=== PATIENT | female | born 1980 | race Caucasian/White ===

== ENCOUNTER 2017-02-12 09:59 | Inpatient (IN) | payer OTHER ==
[~2017-02-12] VITALS: Ht 175.3 cm; Wt 92.9 kg
[2017-02-12] VITALS (7 sets, daily range): BP systolic 89–121; BP diastolic 58–95
--- NOTE | ~2017-02-12 | HC ---
[facility] [place] [address] CONSULTATION Name: DEBRA DHILLON Room #: 303-P ADM IN M.R.#: [id number] Admission: 02/12/17 Attend Phys: Pancho Iyer DO Discharge: Date of : 76 Report #: [id number] THIS REPORT FOR: //name// CC: [facility] physician/PCP Suresh Santana MD DATE OF SERVICE: 02/13/[address] Santana. CHIEF COMPLAINT: This is a very pleasant 36-year-old female alcoholic, who is well known to me from multiple previous admissions who was admitted once again with alcoholic hepatitis. She is recovering in the ICU with appropriate care for her situation. She is awake and alert and oriented at this time. She has had one bloody stool since admission. PAST MEDICAL HISTORY: Significant for ischemic colitis. This was biopsied proven with colon biopsies and the CTA was not indicative of any focal ischemia lesion. She has a history of microcytic anemia, anxiety, depression, schizo-affective disorder with hallucinations in the past, seizures, chronic alcohol use, chronic pancreatitis, thrombocytopenia. PAST SURGICAL HISTORY: Significant for an appendectomy, cholecystectomy, sections, tonsillectomy, removal of the neck tumor that was benign apparently. She had an ACL repair and a rotator cuff surgery as well. ALLERGIES: TRAMADOL. MEDICATIONS: Prior to admission included amoxicillin, dicyclomine, Keppra, Flagyl, Seroquel, sertraline and prazosin. SOCIAL HISTORY: She does drink alcohol. She does smoke. She drinks alcohol very extensively and has had numerous admissions for alcoholic hepatitis. She may have cirrhosis. CURRENT MEDICATIONS: Include amoxicillin, benzoyl, Keppra, Flagyl, Seroquel, sertraline and prazosin as mentioned. FAMILY HISTORY: Negative for colon polyps, colon cancers. The patient herself has a history of Crohn's disease, though we have not seen any active Crohn's disease on scope that was done here at [facility]. She does have positive anti-Saccharomyces IgA and IgG antibodies which would be indicative of possible Crohn's disease in about 70%. of the patients who carry that. REVIEW OF SYSTEMS: She denies any dysphagia, odynophagia, gastroesophageal [facility] [address] [place] [address] CONSULTATION Name: DEBRA DHILLON Room #: 303-P [facility] IN M.R.#: [id number] Admission: 02/12/17 Attend Phys: Pancho Iyer DO Discharge: Date of : 76 Report #: [id number] reflux, hiatal hernia, peptic ulcer disease, nausea, vomiting, change in weight, change in appetite. Now, she has alcoholic hepatitis. She has no appetite. She denies any hematemesis or melena, but she has had some hematochezia this morning, one small stool. She has a history of ischemic colitis, it is biopsy proven. She has left lower quadrant pain and left upper quadrant pain that are consistent with chronic pancreatitis and her previous ischemic pattern. Currently not nauseated and not vomiting. PHYSICAL EXAMINATION: GENERAL: Reveals a well-developed, well-nourished 36-year-old white female in no apparent distress at the time of my examination, who is in and out of consciousness, who is awake, alert, oriented times 4 and cooperative when she is awake, but she drifts back to sleep quickly. HEENT: She is normocephalic and atraumatic and anicteric. HEART: Rate and rhythm are regular with a normal S1 and S2. LUNGS: Clear bilaterally. ABDOMEN: Soft, bowel sounds are present in all 4 quadrants. There is no palpable organomegaly or mass. There is tenderness in the left upper quadrant and epigastrium and tenderness in the left lower quadrant, but no rebound or guarding. EXTREMITIES: Warm and dry. NEUROLOGIC: She appears grossly intact without lateralizing signs, but I did not test her extensively neurologically. LABORATORY DATA: Her BMP is normal except for mildly elevated glucose. AST was 695 yesterday, down to 544 today. ALT was 160 yesterday and down to 137 today. Alkaline phosphatase went from 230 to a 206. Total bilirubin went from 3.2 to 3.0. It appears to be primarily conjugated bilirubin. Albumin is 2.4, ammonia is 71, which was up from 51 yesterday. Lactate was elevated initially at 4.2 units and headed down to 3.5 now. Alcohol level was 451 on admission. Iron saturation is 36%. Her INR is 1.3. D-dimer is high at 2.77. White count was normal, hemoglobin is normal, MCV is high at 104.8, it has been in the past just secondary to her alcohol use. Platelet count is 21,000 today. Ferritin 656, but is in acute phase reactant. Folate is 1.8, B12 is 1796. Thyroid studies are all within normal limits. She has an elevated Saccharomyces IgG and IgA as mentioned. Urinalysis shows 2+ protein, 3+ bilirubin, 1+ ketones, 3+ blood, nitrites are positive, probably because of the bilirubin is false positive. RADIOLOGY: CT scan of the head shows no mass effect, midline shift or extraaxial fluid collection. There is no acute intracranial hemorrhage or CT evidence of acute infarction. The bilateral cisterns are patent. The orbits and mastoid air cells are normal. Paranasal sinuses are normal. Skull is normal. No acute intracranial process. CT abdomen and pelvis was also done at the time of admission for left lower quadrant pain evaluation. Fatty liver is noted. Spleen is normal in size. Gallbladder absent without significant bile duct dilatation, some calcifications noted in the pancreas consistent with [facility] [address] [place] [address] CONSULTATION Name: DEBRA DHILLON Room #: 303-P [facility] IN .R.#: [id number] Admission: 02/12/17 Attend Phys: Pancho Iyer DO Discharge: Date of : 76 Report #: [id number] chronic pancreatitis. There were few kidney stones in the upper pole of the left kidney, about 2 mm in size, nonobstructing. There were multiple dilated retroperitoneal veins to the left of the midline which extends to the portal vein and this probably is some element of portal hypertension. Dilated veins were also seen along the anterior marginal of the liver. Retroverted uterus is seen. There are several follicular cysts in the left ovary. There is a new calcification in the left adnexal area. IMPRESSION: 1. Alcoholic hepatitis with a Maddrey Discriminant Function of 8. 2. Chronic pancreatitis. 3. Hematochezia, small stool this morning. 4. Thrombocytopenia, severe, platelet count 32,000. 5. History of ischemic colitis. 6. Multiple dilated retroperitoneal veins extending to the portal vein, rule out esophageal varices. 7. Schizo-affective disorder with hallucinations by history. 8. History of seizures. 9. History of macrocytic anemia, normal thyroid, B12, and folate levels. 10. Positive Saccharomyces IgA and IgG anybody. These occur in about 70% Crohn's patients and she gives a history of Crohn's disease, but we have not ever seen any Crohn's manifestation. 11. Calcifications in the left adnexa of uncertain etiology. I think this needs to be worked up with a pelvic ultrasound further. 12. Urinary tract infection. She has greater than 100,000 gram-negative rods in her urine, sensitivity and identification is pending. RECOMMENDATIONS: My recommendations are to: 1. Continue the supportive care, recheck her liver enzymes, proton and CBC in the morning. We need an esophagogastroduodenoscopy at some point on her to evaluate for possible esophageal varices in light of the findings on her CT scan. She is advised very strongly to stop all alcohol intake completely and forever. She is headed for early demise at this rate. 2. Treat urinary tract infection when information becomes available. Currently, she is on ceftriaxone, which may be adequate. 3. Pelvic ultrasound. 4. Continue levetiracetam. 5. Alcohol withdrawal procedures. 6. Clear liquid diet as tolerated. [address] [address] CONSULTATION Name: DEBRA DHILLON Room #: 303-P [facility] IN M.R.#: [id number] Admission: 02/12/17 Attend Phys: Pancho Iyer DO Discharge: Date of : 76 Report #: [id number] Thank you very much once again for allowing me to participate in her care. <ELECTRONICALLY SIGNED> By: Kerrie Hoyos DO 02/19/17 1153 1238 0127 Kerrie Hoyos DO /nt
--- NOTE | ~2017-02-12 | H ---
[facility] [place] [address] HISTORY AND PHYSICAL Name: DEBRA DHILLON Room #: 246-P ADM IN M.R.#: [id number] Admission: 02/12/17 Attend Phys: Suresh Santana MD Discharge: Date of : 76 Report #: [id number] THIS REPORT FOR: //name// CC: [facility] physician/PCP Suresh Santana DATE OF SERVICE: 02/12/2017 CHIEF COMPLAINT: Abdominal pain. HISTORY OF PRESENT ILLNESS: The patient is a 36-year-old female with history of alcoholism, chronic abdominal pain, alcohol related liver disease, history of ischemic colitis in the past, presented to the emergency room, secondary to abdominal pain. The patient states she has had abdominal pain since October 2016. The patient also states, she has an episode of pancreatitis and ischemic colitis in the past. There has been also some nausea and vomiting. The patient is very confused. She is oriented to self and person. She follows simple commands. According to the ER note, the patient was brought in by boyfriend, secondary to abdominal pain. PAST MEDICAL HISTORY: Significant for acute pancreatitis, history of ischemic colitis in October of 2016. She had CTA done at that time, which was negative. She did have a colonoscopy at that time which shows consistent with ischemic colitis. She has had elevated LFTs secondary to alcoholism, history of microcytic anemia, anxiety, depression, chronic pain syndrome. She had echocardiogram done in August 2016, which showed an EF of 60-65%. No pericardial effusion. She had thrombocytopenia in the past. History of seizure disorder, also he has had withdrawal from alcohol. Depression and anxiety. Schizoaffective disorder. PAST SURGICAL HISTORY: Significant for , status post neck tumor removal, post-appendectomy, status post tonsillectomy, status post cholecystectomy, ACL surgery, and rotator cuff surgery. SOCIAL HISTORY: The patient states she still smokes. She still drinks, unable to quantify because of the confusion. The patient denies any drug intake. The patient states she lives with a friend. FAMILY HISTORY: Negative for epilepsy or hypercoagulable state. ALLERGIES: She is allergic to TRAMADOL. HOME MEDICATIONS: Unknown. According to the previous note, she is on Seroquel, Zoloft, and Keppra at one point. She is confused at present, unable to obtain the exact home medication list. [address] [address] HISTORY AND PHYSICAL Name: DEBRA DHILLON Room #: 246-P [facility] IN M.R.#: [id number] Admission: 02/12/17 Attend Phys: Suresh Santana MD Discharge: Date of : 76 Report #: [id number] REVIEW OF SYSTEMS: Unable to obtain because of confusion. PHYSICAL EXAMINATION: VITAL SIGNS: Blood pressure 115/69, heart rate of 110 per minute, respiratory rate is 20 per minute, afebrile. GENERAL: The patient is awake. She follows simple commands. She is oriented to person. EYES: Pupils are equal and reacting to light. THROAT: She has a very dry oral mucosa. NECK: Supple. No JVD, no bruit, no lymphadenopathy. CARDIOVASCULAR: S1 and S2. No S3. CHEST: Bilateral air entry present. Clear on auscultation. ABDOMEN: Soft. Bowel sounds present. No mass. No organomegaly. There is mild diffuse tenderness. No rebound tenderness. No guarding. PERIPHERY: No pedal edema. No calf tenderness. Dorsalis pedis 1+. NEUROLOGIC: No gross motor or sensory deficit. Able to move all 4 extremities. No asterixis noted. No tremors noted. LABORATORY DATA: Reviewed. CT of the head done today showed no evidence of any acute intracranial process. CT of the abdomen and pelvis again showed evidence of chronic pancreatitis, and few nonobstructing stones within the upper pole of the left kidney, cyst seen in the left ovary about 2.3 cm, severe fatty infiltration of the liver with retroperitoneal varices, suggestive of portal hypertension. Calcification within the pancreas consistent with chronic pancreatitis. White count of 6.6 with normal hemoglobin and hematocrit. Platelet is 32. INR of 1.3, potassium is 3.2, and anion gap is 18. Lactic acid is 4.2. Magnesium is 1.9, bilirubin is 3.2, AST and ALT are 695 and 160, albumin is 2.9. Urine toxicology was negative. UA revealed 6-15 WBC. Ammonia is elevated at 51. Alcohol level was 451. ASSESSMENT AND PLAN: 1. Acute alcoholic hepatitis. GI will be consulted. The patient has been strongly advised to stop drinking alcohol. We will watch closely for alcohol withdrawal symptoms. I ordered benzodiazepine p.r.n. for alcohol withdrawal. The patient will be continued on Keppra. 2. Elevated ammonia/hepatic encephalopathy. The patient will be continued on p.o. lactulose. 3. Urinary tract infection. We will continue with IV ceftriaxone. We will follow up urine culture and adjust antibiotic as needed. 4. Profound thrombocytopenia, most likely related to liver disease. We will consult Hematology. I also ordered a peripheral smear study. We will also do a DIC workup including D-dimer, fibrinogen, and PTT. 5. Hypokalemia. Potassium will be replaced. [facility] [address] [place] [address] HISTORY AND PHYSICAL Name: DEBRA DHILLON Room #: 246-P [facility] IN .R.#: [id number] Admission: 02/12/17 Attend Phys: Suresh Santana MD Discharge: Date of : 76 Report #: [id number] 6. Alcoholism with alcohol level of 451. 7. Chronic pain/anxiety and depression/schizoaffective disorder. 8. History of ischemic colitis in October of 2016. 9. Deep venous thrombosis prophylaxis. The patient will be placed on SCD on legs for DVT prophylaxis. Treatment plan has been explained to the patient in detail. <ELECTRONICALLY SIGNED> By: Suresh Santana MD 02/13/17 1256 1502 1810 Suresh Santana MD /nt
--- NOTE | ~2017-02-12 | HC ---
[facility] [place] [address] CONSULTATION Name: DEBRA DHILLON Room #: 246-P ADM IN M.R.#: [id number] Admission: 02/12/17 Attend Phys: Suresh Santana MD Discharge: Date of : 76 Report #: [id number] THIS REPORT FOR: //name// CC: Nikita Vieira MD [facility] physician/PCP Abi Santana MD REASON FOR CONSULTATION: Thrombocytopenia. HISTORY OF PRESENT ILLNESS: The patient is a 36-year-old female with a history of known alcoholism, who was admitted with abdominal pain and alcohol level over 450. Her platelets on this admission were 32,000; today, they are 21,000; that was yesterday, 32,000. Most recently, in October, they were 278,000, at the time of discharge. In the past, she had been as low as 46,000, on 09/22/2015. The patient is still in withdrawal mode and still a questionable historian. It sounds like she had some rectal bleeding, but it sounds it had been in the past when she had ischemic colitis back in October. There is no report either per her or per the chart that she has any active bleeding, either in the stool or in her urine. The blood is reported was 3+ and the RBCs as 3-10. The patient, at this time, denies fevers or chills. She does state that she had been having nausea, vomiting and abdominal pain. Note that she appears to have pancreatitis with elevated pancreatic enzymes and also alcoholic hepatitis, with an alcohol level over 450 on admission and transaminases are greatly elevated, higher than usual and a total bilirubin of 3.2. Note that her synthetic function is mostly okay. Her INR is 1.3; previously 1.1. APTT is good. Fibrinogen is also fairly adequate. The rest of her labs are normal. The electrolytes are unremarkable, though potassium was low on admission at 3.2, it is now 3.4; BUN 7 and creatinine 0.7. AST 695 yesterday. Total bilirubin 3.2 yesterday, direct bili 0.6. Alkaline phosphatase 230 and ALT 160. GGTP not drawn this admission. Current albumin yesterday was 2.9. Ammonia level was 71 today; 51 yesterday. Alcohol level was 451 this admit. There are several other admits over 400 going back 5 years. Iron levels were drawn back in July with an iron of 64 back then and percent set at 23. Lab will be checked again. As mentioned, protime this admit 13.4 with an INR of 1.3, APTT 28.2 and fibrinogen 221. Drug screen was negative for other drugs tested. WBC was 6.6; hemoglobin 15, now 13. Normal baseline when she left back in October, it had been 11.6. MCV elevated at 103, which is chronically elevated for the last several years. RDW 16.4. Differential fairly normal with a slight left shift, with no acute forms noted on this admit. Did have metamyelocytes and myelocytes back in 2011. UCG is negative. TSH this admit 0.872, folate 11.8. Vitamin B12 at 1796. U/A, as I mentioned, had 3-10/few red cells. Imaging this admit includes CT head with no acute intracerebral process. [facility] [address] [place] [address] CONSULTATION Name: DEBRA DHILLON Room #: 246-P ADM IN M.R.#: [id number] Admission: 02/12/17 Attend Phys: Suresh Santana MD Discharge: Date of : 76 Report #: [id number] abdomen and pelvis shows lung bases have some atelectasis or scarring, liver has severe fatty infiltration without abnormalities. Spleen, as mentioned, is normal in size. Gallbladder surgically absent. Pancreas, some calcification, suggested of chronic pancreatitis without acute changes. Adrenal is normal. Kidneys without hydronephrosis. Retroperitoneum, multiple dilated retroperitoneal veins to the left of midline that may represent portal hypertension. Dilated veins also seen in the inferior margin of the liver. Bowel, no focal bile or inflammatory changes identified. Peritoneum, no free air or ascites. Bladder, small amount of gas. Bones, no significant bone abnormalities. Does have a left ovarian probably follicular cyst. Has known obstructing stones that pulled the left upper kidney. PHYSICAL EXAMINATION: GENERAL: The patient appears her stated age. Breath is slightly sweet, like it is expected from alcohol overuse and perhaps some ketones. VITAL SIGNS: Height is 5 feet 9, 175.3 cm. Weight is 160 pounds 18 ounces, which is about 72 kilograms. Blood pressure is 99/61, O2 sat 92, pulse 109 and temperature 98.8. NEUROLOGIC: Face is symmetrical. The patient is slightly tremulous and distracted in her thinking and speech pattern, though is able to answer questions. HEENT: Oropharynx is clear, without injection, ecchymosis or masses. LUNGS: Have symmetric respirations that are unlabored. LYMPHATICS: No enlarged lymph nodes in the supraclavicular, cervical, axillary or inguinal region. ABDOMEN: Obese, slightly tender. No definite masses. EXTREMITIES: Without clubbing or cyanosis. No unusual ecchymosis. No bleeding from the IV sites. PAST MEDICAL HISTORY: Past history is notable in the chart for a history of alcohol abuse, also acute pancreatitis, history of ischemic colitis in October of 2016, history of anxiety and depression, schizoaffective disorder, history of thrombocytopenia to 40-50 range in the past, history of seizure disorder, also alcohol withdrawal, also , some type of neck tumor removal, appendectomy, tonsillectomy, cholecystectomy and rotator cuff surgery in the past. SOCIAL HISTORY: Still smokes, still drinks. She is on disability due to seizures. FAMILY HISTORY: Reports no one else with bleeding difficulties. It sounds like her father was alcoholic. I believe, she has children. ALLERGIES: Reports at this time to TRAMADOL. MEDICATIONS: Had been on Zoloft and Keppra in the past. Current medications at [address] [address] CONSULTATION Name: DEBRA DHILLON Room #: 246-P [facility] IN .R.#: [id number] Admission: 02/12/17 Attend Phys: Suresh Santana MD Discharge: Date of : 76 Report #: [id number] this time in the hospital include vitamins, lactulose 20 grams b.i.d., thiamine 100 mg daily, ceftriaxone 1 gram daily, famotidine 20 mg b.i.d., levetiracetam 500 mg b.i.d., lorazepam p.r.n., diazepam p.r.n., other electrolyte protocol , also Haldol p.r.n. and flumazenil p.r.n. ASSESSMENT AND PLAN: 1. Thrombocytopenia, most likely due to alcohol effect of bone marrow. No active bleeding. I expect this to recover on its own. Note that B12, folate and thyroid studies have been checked. We will check iron again. We will also check platelet antibody. Also spleen is normal. So, I do not expect splenomegaly as a cause. At this time, I would not transfuse as she does not have any active bleeding, but if she does bleed, I would transfuse. 2. Alcoholism and withdrawal. We will defer to others. 3. Abdominal pain. It may be related to pancreatitis. We will defer to others. 4. Seizure disorder. Continue with levetiracetam. 5. Schizoaffective mood disorder. May need to be back on anti-depressant meds at some point. 6. Regarding prognosis, I did explain to the patient that continued alcohol will cause continuous and worsening liver and bone marrow difficulties that could be lead to an earlier and encouraged her to stop. <ELECTRONICALLY SIGNED> By: Eder Mayes MD 02/13/17 1926 [id number] 1218 Eder Mayes MD /nt
--- NOTE | ~2017-02-12 | S ---
[facility] [place] [address] SURGICAL PATH RPT PROCEDURE Name: DEBRA DHILLON Room #: 246-P ADM IN M.R.#: [id number] Admission: 02/12/17 Date of : 76 Discharge: Report #: [id number] Path Case #: [id number] PATHOLOGY REPORT COLLECTION DATE: 02/14/2017 RECEIVED DATE: 02/14/2017 SUBMITTING PHYS: Dr. Suresh Santana OTHER PHYS: SPECIMEN(S) RECEIVED: A.Peripheral smear * * * * * * * * * * * * FINAL DIAGNOSIS: Peripheral blood with severe thrombocytopenia, relative neutrophilia, lymphocytopenia, and macrocytosis. (please see comment) COMMENT: The peripheral blood shows relative neutrophilia with toxic changes including occasional cytoplasmic vacuoles. There is also thrombocytopenia noted. The findings suggest a reactive process probably secondary to infectious/inflammatory etiology. There is macrocytosis with occasional target cells, findings possibly related to patient's clinical history of alcoholism and liver disease. The thrombocytopenia may also be secondary to ineffective megakaryocytopoiesis due to alcohol suppression. Other possible causes of thrombocytopenia should be considered and may include failure of marrow production such as seen in marrow infiltration with tumor, infection, or fibrosis, marrow aplasia, and ineffective megakaryocytopoiesis such as seen in megaloblastic anemia and myelodysplasia. Increased platelet destruction may cause thrombocytopenia such as seen in immune thrombocytopenia (autoantibody-mediated: systemic lupus erythematosus, lymphomas, drugs, infections, idiopathic) and non-immune thrombocytopenia (DIC, TTP, and mechanical). Splenic sequestration (hypersplenism) may also cause thrombocytopenia. There are no aggregates of platelets to suggest spurious EDTA-pseudothrombocytopenia. Please correlate clinically. (ADORE:; d/t: 02/14/17) PATHOLOGIST: Ijeoma Christiansen M.D. REPORT ELECTRONICALLY SIGNED BY: Ijeoma Christiansen M.D. DATE/TIME: 02/14/2017 23:25 * * * * * * * * * * * * MICROSCOPIC DESCRIPTION: CBC Data (02/12/17): WBC 6.6, RBC 4.21, hemoglobin 15.0, hematocrit [address] [address] SURGICAL PATH RPT PROCEDURE Name: DEBRA DHILLON Room #: 246-P ADM IN ..#: [id number] Admission: 02/12/17 Date of : 76 Discharge: Report #: [id number] Path Case #: [id number] 44.2, MCV 104.8, RDW 16.6%, and platelet count 32,000. White blood cell count differential: 89% segs, 6% lymphs, 3% monos, and 1% basos. Peripheral Smear: Red blood cells are normochromic with mild anisopoikilocytosis including occasional microcytic and macrocytic forms and target cells. There are no schistocytes or morphologic evidence of a hemolytic process identified. Platelets are severely decreased with normal morphology. Aggregates of platelets are not seen. White blood cells are normal in number with predominance of mature segmented neutrophils. There are no circulating blasts or myeloid left shift identified. The neutrophils show occasional cytoplasmic vacuoles. The lymphocytes are relatively decreased and are mostly small and mature. CLINICAL HISTORY: The patient is a 36 year-old female with a past medical history of alcoholism, chronic abdominal pain, alcohol related liver disease, and history of ischemic colitis in the past. She recently was seen due to abdominal pain. A peripheral smear is submitted for review. INITIAL CPT CODE(S): A; [place] Professional services performed by [facility] at [facility], [address] [place] [address]. Technical services performed by [facility] at [address] [place] [address], [address], [place] [address]. [facility] [address] [place] [address] PHONE: [phone] DIRECTOR: Gilles Olivares M.D. * * * END OF REPORT * * *
[~2017-02-12 09:59] MED LIST: AMOXICILLIN500 M1 PO; ATIVAN1 MG PO; BENTYL 20 MG TA20 M1 PO; BUSPIRONE HCL10 MG PO; CLONAZEPAM 0.50.5 M1 PO; CLONAZEPAM 1 MG1 M1 PO; DEPAKOTE ER500 MG PO; DILAUDID 2 MG TA2 MG PO; FLAGYL500 MG PO; GNP PRENATAL V PO; IBUPROFEN 800800 M1 PO; IBUPROFEN 800800 MG PO; KEPPRA 500 MG500 M1 PO; LIBRIUM10 MG PO; LIDODERM 5%1 PATC1 TRANSDERM; MIRTAZAPINE15 M1 PO; NOHOMEMEDICATIONS; NORCO 5-325 TA1 EACH PO; OXYCODONE HCL5 M1 PO; PERCOCET PO; Prazosin PO; SEROQUEL 50 MG50 MG PO; SEROQUEL XR400 M1 PO; SERTRALINE HCL100 MG PO; SERTRALINE HCL50 MG PO; VITAMIN B-1100 M1 PO; ZOFRAN ODT4 MG PO
[2017-02-12 11:01] LABS: MCH 35.6 pg (26.0-34.0); WBC 6.6 thou/uL (4.0-11.0)
[2017-02-12 11:03] LABS: HEMATOCRIT 44.2 % (37.0-47.0); MCV 104.8 fL (80.0-100.0); RBC 4.21 mil/uL (4.20-5.00); RDW 16.6 % (10.5-14.5)
[2017-02-12 11:13] LABS: MANUAL DIFF YES
[2017-02-12 11:21] LABS: ALBUMIN 2.9 g/dL (3.4-5.0); ALKALINE PHOSPHATASE 230 U/L (46-116); ANION GAP 18 mmol/L (7-16); CHLORIDE 96 mmol/L (98-107); CO2 24 mmol/L (21-32); CREATININE 1.1 mg/dL (0.6-1.3); GLUCOSE 114 mg/dL (70-99); MAGNESIUM 1.9 mg/dL (1.8-2.4); POTASSIUM 3.2 mmol/L (3.5-5.1); SGOT 695 U/L (15-37); SGPT 160 U/L (30-65); SODIUM 138 mmol/L (136-145); TOTAL BILIRUBIN 3.2 mg/dL (<0.1-1.0); TOTAL PROTEIN 7.6 g/dL (6.4-8.2); TROPONIN-I < 0.04 ng/mL (<0.04-0.07)
[2017-02-12 11:52] LABS: URINE BILIRUBIN 3+ (Negative); URINE BLOOD 3+ (Negative); URINE COLOR YELLOW; URINE GLUCOSE-RANDOM* NEGATIVE (Negative); URINE KETONES 1+ (Negative); URINE LEUKOCYTES-REFLEX TRACE (Negative); URINE PROTEIN (DIPSTICK) 2+ (Negative); URINE SPECIFIC GRAVITY 1.025 (1.003-1.035)
[2017-02-12 11:54] LABS: ICTOTEST (BILI CONFIRMATORY) Positive (Negative)
[2017-02-12 12:01] LABS: INR 1.3; PROTIME 13.4 Seconds (9.3-11.4)
[2017-02-12 12:03] LABS: ABSOLUTE NEUTROPHILS 5.9 thou/uL (1.4-8.2); ANISOCYTOSIS 1+; MACROCYTES 1+; PLATELET ESTIMATE MARKEDLY DECREASED; TOTAL CELL COUNT 100
[2017-02-12 12:05] LABS: PLATELET COUNT 32 thou/uL (150-400)
[2017-02-12 12:11] LABS: AMP/METHAMP Negative (Negative); BARBITURATES Negative (Negative); BENZODIAZEPINES Negative (Negative); COCAINE Negative (Negative); METHADONE Negative (Negative); OPIATES Negative (Negative); PCP Negative (Negative); THC Negative (Negative)
[2017-02-12 12:17] LABS: SQUAMOUS 4-10 Moderate /LPF (0-3)
[2017-02-12 12:18] LABS: CRYSTALS None Seen /LPF (None Seen); HYALINE CASTS 0-3 Few /LPF (None Seen)
[2017-02-12 12:19] LABS: URINE RBC 3-10 Few /HPF (0-2); URINE WBC-REFLEX 6-15 Few /HPF (0-5)
[2017-02-12 12:23] LABS: BUN 14 mg/dL (7-18)
[2017-02-12 16:37] LABS: FOLIC ACID 11.8 ng/mL (8.6-58.9)
[2017-02-12 16:38] LABS: APTT 28.2 Seconds (24.5-32.8); FIBRINOGEN 221.1 mg/dL (210-360)
[2017-02-13] VITALS (25 sets, daily range): BP systolic 93–116; BP diastolic 47–80
[2017-02-13 04:59] LABS: WBC 6.6 thou/uL (4.0-11.0)
[2017-02-13 05:00] LABS: HEMATOCRIT 37.9 % (37.0-47.0); MCH 35.4 pg (26.0-34.0); MCHC 34.3 g/dL (28.0-37.0); MCV 103.1 fL (80.0-100.0); RBC 3.68 mil/uL (4.20-5.00); RDW 16.4 % (10.5-14.5)
[2017-02-13 05:02] LABS: CALCIUM 7.6 mg/dL (8.5-10.1); CREATININE 0.7 mg/dL (0.6-1.3); MAGNESIUM 1.6 mg/dL (1.8-2.4); PHOSPHORUS 1.9 mg/dL (2.5-4.9); POTASSIUM 3.4 mmol/L (3.5-5.1)
[2017-02-13 09:32] LABS: INR 1.3
[2017-02-13 09:34] LABS: % SATURATION 36 % (20-39); IRON 58 ug/dL (50-170); TIBC 159 ug/dL (250-450); UIBC 101 ug/dL
[2017-02-13 09:40] LABS: ALBUMIN 2.4 g/dL (3.4-5.0); DIRECT BILIRUBIN 2.6 mg/dL (<0.1-0.3); TOTAL PROTEIN 6.5 g/dL (6.4-8.2)
[2017-02-13 10:11] LABS: FREE T4 1.23 ng/dL (0.82-1.77)
[2017-02-14] VITALS (48 sets, daily range): BP systolic 91–115; BP diastolic 55–80
[2017-02-14 05:32] LABS: ABSOLUTE NEUTROPHILS 3.2 thou/uL (1.4-8.2); EOSINOPHILS 0.6 % (0.0-3.0)
[2017-02-14 05:34] LABS: BASOPHILS 0.3 % (0.0-2.0); HEMATOCRIT 34.4 % (37.0-47.0); LYMPHOCYTES 13.8 % (24.0-44.0); MCH 35.9 pg (26.0-34.0); MCHC 34.8 g/dL (28.0-37.0); MCV 102.9 fL (80.0-100.0); MONOCYTES 4.6 % (1.0-8.0); POLYS 80.7 % (36.0-66.0); RBC 3.35 mil/uL (4.20-5.00); RDW 16.1 % (10.5-14.5)
[2017-02-14 05:46] LABS: ALBUMIN 2.2 g/dL (3.4-5.0); CALCIUM 8.1 mg/dL (8.5-10.1); CREATININE 0.6 mg/dL (0.6-1.3); MAGNESIUM 2.2 mg/dL (1.8-2.4); PHOSPHORUS 0.9 mg/dL (2.5-4.9); TOTAL BILIRUBIN 3.4 mg/dL (<0.1-1.0); TOTAL PROTEIN 5.8 g/dL (6.4-8.2)
[2017-02-14 05:48] LABS: MANUAL DIFF NO
[2017-02-14 06:47] LABS: PLATELET COUNT 15 thou/uL (150-400)
[2017-02-14 06:48] LABS: ANISOCYTOSIS 1+; MACROCYTES 1+
[2017-02-14 08:55] LABS: INR 1.4; PROTIME 14.7 Seconds (9.3-11.4)
[2017-02-14 17:16] LABS: ABSOLUTE NEUTROPHILS 2.6 thou/uL (1.4-8.2); WBC 3.4 thou/uL (4.0-11.0)
[2017-02-14 17:18] LABS: BASOPHILS 0.5 % (0.0-2.0); EOSINOPHILS 1.2 % (0.0-3.0); HEMATOCRIT 34.3 % (37.0-47.0); HEMOGLOBIN 11.9 gm/dL (12.0-15.0); LYMPHOCYTES 17.5 % (24.0-44.0); MCH 35.6 pg (26.0-34.0); MCHC 34.8 g/dL (28.0-37.0); MCV 102.5 fL (80.0-100.0); POLYS 76.8 % (36.0-66.0); RBC 3.34 mil/uL (4.20-5.00); RDW 16.2 % (10.5-14.5)
[2017-02-14 17:20] LABS: MANUAL DIFF NO; PLATELET COUNT 47 thou/uL (150-400)
[2017-02-15] VITALS (24 sets, daily range): BP systolic 94–113; BP diastolic 59–77
[2017-02-15 04:29] LABS: WBC 3.5 thou/uL (4.0-11.0)
[2017-02-15 04:30] LABS: ABSOLUTE NEUTROPHILS 2.4 thou/uL (1.4-8.2); BASOPHILS 0.5 % (0.0-2.0); EOSINOPHILS 1.6 % (0.0-3.0); HEMATOCRIT 36.5 % (37.0-47.0); HEMOGLOBIN 12.5 gm/dL (12.0-15.0); LYMPHOCYTES 20.3 % (24.0-44.0); MCH 35.3 pg (26.0-34.0); MCHC 34.3 g/dL (28.0-37.0); MONOCYTES 7.2 % (1.0-8.0); POLYS 70.4 % (36.0-66.0); RBC 3.54 mil/uL (4.20-5.00); RDW 16.4 % (10.5-14.5)
[2017-02-15 04:41] LABS: MANUAL DIFF NO
[2017-02-15 04:43] LABS: PLATELET COUNT 44 thou/uL (150-400)
[2017-02-15 04:47] LABS: CALCIUM 7.8 mg/dL (8.5-10.1); CREATININE 0.5 mg/dL (0.6-1.3); MAGNESIUM 1.7 mg/dL (1.8-2.4); PHOSPHORUS 0.8 mg/dL (2.5-4.9); POTASSIUM 3.1 mmol/L (3.5-5.1)
[2017-02-16] VITALS (20 sets, daily range): BP systolic 92–130; BP diastolic 62–77
[2017-02-16 05:32] LABS: ALBUMIN 1.8 g/dL (3.4-5.0); DIRECT BILIRUBIN 4.6 mg/dL (<0.1-0.3); TOTAL BILIRUBIN 5.8 mg/dL (<0.1-1.0)
[2017-02-16 05:47] LABS: TOTAL PROTEIN 5.8 g/dL (6.4-8.2)
[2017-02-16 09:54] LABS: HEMATOCRIT 32.4 % (37.0-47.0); MCH 36.4 pg (26.0-34.0); RBC 3.06 mil/uL (4.20-5.00); RDW 16.5 % (10.5-14.5); WBC 2.6 thou/uL (4.0-11.0)
[2017-02-16 09:56] LABS: HEMOGLOBIN 11.1 gm/dL (12.0-15.0); MCHC 34.4 g/dL (28.0-37.0)
[2017-02-16 09:58] LABS: MANUAL DIFF YES
[2017-02-16 10:03] LABS: PLATELET COUNT 32 thou/uL (150-400)
[2017-02-16 10:28] LABS: ABSOLUTE NEUTROPHILS 1.9 thou/uL (1.4-8.2); ANISOCYTOSIS 1+; MACROCYTES 1+; NUCLEATED RBCS 1 /100WBC; TOTAL CELL COUNT 100
[2017-02-17] VITALS (24 sets, daily range): BP systolic 83–122; BP diastolic 54–80
[2017-02-17 05:07] LABS: HEMOGLOBIN 12.6 gm/dL (12.0-15.0); WBC 2.9 thou/uL (4.0-11.0)
[2017-02-17 05:09] LABS: HEMATOCRIT 36.4 % (37.0-47.0); MCH 35.8 pg (26.0-34.0); MCHC 34.7 g/dL (28.0-37.0); MCV 103.3 fL (80.0-100.0); RBC 3.53 mil/uL (4.20-5.00); RDW 15.8 % (10.5-14.5)
[2017-02-17 05:28] LABS: MANUAL DIFF YES
[2017-02-17 05:31] LABS: PLATELET COUNT 38 thou/uL (150-400)
[2017-02-17 08:30] LABS: PROTIME 33.7 Seconds (9.3-11.4)
[2017-02-17 08:39] LABS: INR 3.3
[2017-02-17 08:51] LABS: ABSOLUTE NEUTROPHILS 1.5 thou/uL (1.4-8.2); ATYPICAL LYMPHS 1 %; TOTAL CELL COUNT 100
[2017-02-17 08:52] LABS: MACROCYTES 1+; POLYCHROMASIA OCCASIONAL
[2017-02-18 04:07] VITALS: BP 115/69
[2017-02-18 06:28] LABS: HEMOGLOBIN 12.7 gm/dL (12.0-15.0)
[2017-02-18 06:31] LABS: HEMATOCRIT 36.9 % (37.0-47.0); MCH 35.6 pg (26.0-34.0); MCHC 34.5 g/dL (28.0-37.0); MCV 103.3 fL (80.0-100.0); RBC 3.57 mil/uL (4.20-5.00); RDW 15.5 % (10.5-14.5)
[2017-02-18 06:37] LABS: MANUAL DIFF YES; PLATELET COUNT 49 thou/uL (150-400)
[2017-02-18 06:44] LABS: PROTIME 34.3 Seconds (9.3-11.4)
[2017-02-18 06:46] LABS: INR 3.3
[2017-02-18 06:51] LABS: ALBUMIN 1.7 g/dL (3.4-5.0); CALCIUM 8.2 mg/dL (8.5-10.1); CREATININE 0.4 mg/dL (0.6-1.3); DIRECT BILIRUBIN 8.4 mg/dL (<0.1-0.3); POTASSIUM 3.3 mmol/L (3.5-5.1); TOTAL BILIRUBIN 10.9 mg/dL (<0.1-1.0); TOTAL PROTEIN 5.2 g/dL (6.4-8.2)
[2017-02-18 07:12] LABS: TOTAL CELL COUNT 100
[2017-02-18 07:14] LABS: ABSOLUTE NEUTROPHILS 1.6 thou/uL (1.4-8.2)
[2017-02-18 07:15] LABS: LARGE PLATELETS RARE; MACROCYTES 1+
[2017-02-18 07:50] VITALS: BP 106/68
[2017-02-18 15:15] VITALS: BP 109/70
[2017-02-18 19:50] VITALS: BP 110/69
[2017-02-19] VITALS (9 sets, daily range): BP systolic 104–127; BP diastolic 62–83
[2017-02-19 06:25] LABS: INR 3.7; PROTIME 38.1 Seconds (9.3-11.4)
[2017-02-19 06:33] LABS: ALBUMIN 1.7 g/dL (3.4-5.0); CALCIUM 8.5 mg/dL (8.5-10.1); CREATININE 0.4 mg/dL (0.6-1.3); POTASSIUM 3.9 mmol/L (3.5-5.1); TOTAL BILIRUBIN 13.1 mg/dL (<0.1-1.0); TOTAL PROTEIN 5.3 g/dL (6.4-8.2)
[2017-02-19 18:05] LABS: INR 2.4; PROTIME 24.8 Seconds (9.3-11.4)
[2017-02-20 03:40] VITALS: BP 121/75
[2017-02-20 05:12] LABS: HEMATOCRIT 33.1 % (37.0-47.0); HEMOGLOBIN 11.7 gm/dL (12.0-15.0); MCH 36.9 pg (26.0-34.0); MCHC 35.3 g/dL (28.0-37.0); MCV 104.5 fL (80.0-100.0); PLATELET COUNT 72 thou/uL (150-400); RBC 3.17 mil/uL (4.20-5.00); RDW 15.6 % (10.5-14.5); WBC 5.3 thou/uL (4.0-11.0)
[2017-02-20 05:22] LABS: INR 2.6; PROTIME 26.5 Seconds (9.3-11.4)
[2017-02-20 05:23] LABS: MANUAL DIFF YES
[2017-02-20 05:29] LABS: ALBUMIN 1.8 g/dL (3.4-5.0); CALCIUM 8.4 mg/dL (8.5-10.1); CREATININE 0.4 mg/dL (0.6-1.3); MAGNESIUM 1.6 mg/dL (1.8-2.4); POTASSIUM 3.5 mmol/L (3.5-5.1); TOTAL BILIRUBIN 13.2 mg/dL (<0.1-1.0)
[2017-02-20 05:44] LABS: TOTAL PROTEIN 5.7 g/dL (6.4-8.2)
[2017-02-20 07:49] LABS: ABSOLUTE NEUTROPHILS 4.5 thou/uL (1.4-8.2); TOTAL CELL COUNT 100
[2017-02-20 07:50] LABS: LARGE PLATELETS OCCASIONAL; MACROCYTES 1+
[2017-02-20 08:00] VITALS: BP 103/58
[2017-02-20 11:27] LABS: MAGNESIUM 2.2 mg/dL (1.8-2.4)
[2017-02-20 11:28] LABS: POTASSIUM 3.8 mmol/L (3.5-5.1)
[2017-02-20 16:00] VITALS: BP 107/62
[2017-02-20 19:01] VITALS: BP 101/59
[2017-02-21 03:19] VITALS: BP 117/66
[2017-02-21 05:12] LABS: INR 1.9; PROTIME 19.3 Seconds (9.3-11.4)
[2017-02-21 05:26] LABS: ALBUMIN 1.9 g/dL (3.4-5.0); CALCIUM 8.3 mg/dL (8.5-10.1); CREATININE 0.4 mg/dL (0.6-1.3); MAGNESIUM 2.1 mg/dL (1.8-2.4); POTASSIUM 3.7 mmol/L (3.5-5.1)
[2017-02-21 06:44] LABS: TOTAL PROTEIN 7.1 g/dL (6.4-8.2)
[2017-02-21 08:05] VITALS: BP 120/71
[2017-02-21 15:49] VITALS: BP 113/67
[2017-02-21 20:00] VITALS: BP 106/62
[2017-02-22 04:00] VITALS: BP 118/79
[2017-02-22 05:51] LABS: ALBUMIN 1.9 g/dL (3.4-5.0); CALCIUM 8.4 mg/dL (8.5-10.1); CREATININE 0.5 mg/dL (0.6-1.3); POTASSIUM 3.8 mmol/L (3.5-5.1); TOTAL BILIRUBIN 10.9 mg/dL (<0.1-1.0); TOTAL PROTEIN 5.8 g/dL (6.4-8.2)
[2017-02-22 06:54] LABS: INR 1.6
[2017-02-22 09:19] VITALS: BP 108/73
[2017-02-22 20:25] VITALS: BP 118/77
[2017-02-23 06:04] LABS: MCHC 34.9 g/dL (28.0-37.0); RBC 3.26 mil/uL (4.20-5.00)
[2017-02-23 06:06] LABS: HEMATOCRIT 34.5 % (37.0-47.0); PLATELET COUNT 146 thou/uL (150-400); RDW 15.5 % (10.5-14.5); WBC 10.4 thou/uL (4.0-11.0)
[2017-02-23 06:09] LABS: MANUAL DIFF YES
[2017-02-23 06:15] LABS: INR 1.6
[2017-02-23 06:20] LABS: ALBUMIN 1.9 g/dL (3.4-5.0); CALCIUM 8.7 mg/dL (8.5-10.1); CREATININE 0.4 mg/dL (0.6-1.3); POTASSIUM 3.7 mmol/L (3.5-5.1); TOTAL BILIRUBIN 12.8 mg/dL (<0.1-1.0); TOTAL PROTEIN 5.8 g/dL (6.4-8.2)
[2017-02-23 06:56] LABS: ABSOLUTE NEUTROPHILS 9.5 thou/uL (1.4-8.2); PLATELET ESTIMATE NORMAL; TOTAL CELL COUNT 100
[2017-02-23 07:00] VITALS: BP 105/62
[2017-02-23 15:47] VITALS: BP 106/63
[2017-02-23 20:00] VITALS: BP 104/64
[2017-02-24 03:34] VITALS: BP 107/63
[2017-02-24 06:46] LABS: PROTIME 20.4 Seconds (9.3-11.4)
[2017-02-24 07:20] LABS: HEMATOCRIT 32.4 % (37.0-47.0); HEMOGLOBIN 11.2 gm/dL (12.0-15.0); MCH 37.3 pg (26.0-34.0); MCHC 34.7 g/dL (28.0-37.0); MCV 107.5 fL (80.0-100.0); RBC 3.01 mil/uL (4.20-5.00); RDW 15.4 % (10.5-14.5); WBC 9.7 thou/uL (4.0-11.0)
[2017-02-24 07:25] LABS: CALCIUM 8.4 mg/dL (8.5-10.1); CREATININE 0.5 mg/dL (0.6-1.3); POTASSIUM 3.7 mmol/L (3.5-5.1)
[2017-02-24 07:50] VITALS: BP 104/62
[2017-02-24] MEDS ORDERED: OXYCODONE HCL 55 MG PO (14:03)
[2017-02-24] MEDS ORDERED: KEPPRA 500 MG500 M1 PO (14:03)
[2017-02-24] MEDS ORDERED: SERTRALINE HCL100 MG PO (14:03)
[2017-02-24] MEDS ORDERED: ALDACTONE25 MG PO (14:03)
[2017-02-24] MEDS ORDERED: ALPRAZOLAM 0.0.25 M1 PO (14:04)
[2017-02-24] MEDS ORDERED: CREON 10 CAPSUL1 CA1 PO (14:04)
[2017-02-24] MEDS ORDERED: LACTULOSE10 GM/153 PO (14:04)
[2017-02-24] MEDS ORDERED: PREDNISONE 20 M20 M1 PO (14:05)
[2017-02-24] MEDS ORDERED: VITAMIN B-1100 M2 PO (14:05)
[2017-02-24] MEDS ORDERED: PRENATAL PO (14:06)
[2017-02-24 14:10] VITALS: BP 104/62
[2017-02-24] MEDS ORDERED: TRINATE TABLET1 TAB PO (16:44)
== END 2017-02-24 18:10 | disposition home or self-care (01) | DRG 441 ==
LOC: ER 09:59 → ICU 14:17 → EROBS 14:17 → 3N 14:17 → ICU 14:31 → 3N 02-17 17:29
PROVIDERS: Family Medicine; Hospitalist; Internal Medicine; Internal Medicine Gastroenterology; Internal Medicine Hematology & Oncology; Nurse Practitioner Acute Care; Nurse Practitioner Family; Physician Assistant; Specialist
PROC: B548ZZA Ultrasonography of Superior Vena Cava, Guidance (ICD-10-PCS; 2017-02-12)
PROC: 02HV33Z Insertion of Infusion Device into Superior Vena Cava, Percutaneous Approach (ICD-10-PCS; 2017-02-12)
PROC: 30233L1 Transfusion of Nonautologous Fresh Plasma into Peripheral Vein, Percutaneous Approach (ICD-10-PCS; principal; 2017-02-19)
PROC: 30233R1 Transfusion of Nonautologous Platelets into Peripheral Vein, Percutaneous Approach (ICD-10-PCS; principal; 2017-02-19)
PROC: 30233K1 Transfusion of Nonautologous Frozen Plasma into Peripheral Vein, Percutaneous Approach (ICD-10-PCS; principal; 2017-02-19)
DX: K72.90 Hepatic failure, unspecified without coma (principal); G93.40 Encephalopathy, unspecified; E43 Unspecified severe protein-calorie malnutrition; N39.0 Urinary tract infection, site not specified; K50.90 Crohn's disease, unspecified, without complications; F10.239 Alcohol dependence with withdrawal, unspecified; K86.1 Other chronic pancreatitis; K55.9 Vascular disorder of intestine, unspecified; D68.9 Coagulation defect, unspecified; K92.1 Melena; D69.6 Thrombocytopenia, unspecified; K70.10 Alcoholic hepatitis without ascites; E87.6 Hypokalemia; F10.20 Alcohol dependence, uncomplicated; Y90.8 Blood alcohol level of 240 mg/100 ml or more; R50.9 Fever, unspecified; F41.9 Anxiety disorder, unspecified; K64.9 Unspecified hemorrhoids; D53.9 Nutritional anemia, unspecified; F32.9 Major depressive disorder, single episode, unspecified; G89.4 Chronic pain syndrome; R04.0 Epistaxis; G40.909 Epilepsy, unspecified, not intractable, without status epilepticus; F25.9 Schizoaffective disorder, unspecified; E83.42 Hypomagnesemia; R79.89 Other specified abnormal findings of blood chemistry; E83.39 Other disorders of phosphorus metabolism; F17.210 Nicotine dependence, cigarettes, uncomplicated; Z90.49 Acquired absence of other specified parts of digestive tract; Z68.30 Body mass index [BMI] 30.0-30.9, adult; Z88.6 Allergy status to analgesic agent; Z79.899 Other long term (current) drug therapy; Z79.01 Long term (current) use of anticoagulants; Z28.21 Immunization not carried out because of patient refusal
CPT/HCPCS: 10078; 10096; 10795; 23012; 27000; 85076

== ENCOUNTER 2017-02-28 12:14 | Inpatient (IN) | payer OTHER ==
[~2017-02-28] VITALS: Ht 175.3 cm; Wt 91.6 kg
--- NOTE | ~2017-02-28 | HC ---
[facility] [place] [address] CONSULTATION Name: DEBRA DHILLON VICTORIA Room #: 447-P ADM IN M.R.#: [id number] Admission: 02/28/17 Attend Phys: Pancho Iyer DO Discharge: Date of : 76 Report #: [id number] THIS REPORT FOR: //name// CC: AMIRAH physician/PCP Pancho Iyer REASON FOR CONSULTATION: Arrhythmia. HISTORY OF PRESENT ILLNESS: The patient is a 36-year-old with a longstanding history of alcoholism, recently diagnosed with liver failure, was sent to rehab, but apparently started developing abdominal pain, worsening swelling and shortness of breath. She was brought to the ER and found to have pancreatitis. Cardiology was consulted because she had an arrhythmia on telemetry showing a wide complex tachycardia lasting approximately 10 seconds. This was asymptomatic with no symptoms of lightheadedness. She denies any problems with chest pain or chest tightness. She has some mild shortness of breath. She denies PND or orthopnea. She has had some chronic lower extremity swelling. REVIEW OF SYSTEMS: A 12-point review of systems GENERAL: No fevers, chills. HEENT: No blurred vision. CARDIOVASCULAR: As above. PULMONARY: No productive cough. GASTROINTESTINAL: She has been experiencing jaundice, lower extremity swelling and abdominal pain with some mild nausea. GENITOURINARY: No dysuria. MUSCULOSKELETAL: No myalgias, arthralgias. ENDOCRINE: No heat or cold intolerance. PAST MEDICAL HISTORY: 1. ETOH abuse. 2. Liver failure. 3. Pancreatitis. 4. Appendectomy. 5. Cholecystectomy. 6. Seizures. 7. Anxiety. 8. Depression. SOCIAL HISTORY: She smokes. She drinks alcohol. She has been in rehab. FAMILY HISTORY: Noncontributory. ALLERGIES: Include TRAMADOL, ADHESIVES. CURRENT MEDICATIONS: Include Aldactone, oxycodone, Keppra, sertraline, alprazolam, lactulose, , lipase, prednisone and thiamine. [address] [address] CONSULTATION Name: DEBRA DHILLON VICTORIA Room #: 447-P [facility] IN ..#: [id number] Admission: 02/28/17 Attend Phys: Pancho Iyer DO Discharge: Date of : 76 Report #: [id number] PHYSICAL EXAMINATION: VITAL SIGNS: Temp is 36.8, pulse 94, respiration 20, blood pressure 99/52, sats are 94%. GENERAL: She is in no acute distress. She is jaundiced. She is appropriate and alert. HEENT: Sclera are jaundiced. Her oropharynx is clear. NECK: Supple, with no thyromegaly or carotid bruits. HEART: Regular rate and rhythm with normal S1 and S2. No S3, S4. She has no elevated jugular venous pressure. LUNGS: Clear to auscultation bilaterally. ABDOMEN: Soft, nontender, nondistended with no hepatosplenomegaly. EXTREMITIES: There is no clubbing or cyanosis. She has 1-2+ lower extremity edema. NEUROLOGIC: Cranial nerves 2-12 are intact. LABORATORY DATA: White count is 17, hemoglobin 10, platelets are 135. White count is decreased from 20. Coags, INR is 2.1. Chemistry: Sodium is 137, potassium 3.5, chloride 103, bicarbonate 27, BUN 10, creatinine 0.5. Total bilirubin is 20. AST is 274. ALT is 195. Alkaline phosphatase is 179. Her ammonia level is 71. Her total protein is down to 5.3, albumin is 1.6. Her 12-lead EKG today shows sinus rhythm with no ischemic changes. Telemetry was reviewed as mentioned above. Her CT of the abdomen shows some abnormal liver findings and some pancreatitis. ASSESSMENT AND PLAN: In summary, the patient is a 36-year-old with alcohol abuse who may have end-stage liver disease as well as pancreatitis that is severe. She had a wide complex tachycardia on a radiation monitor, which may represent supraventricular tachycardia with versus a ventricular arrhythmia. To further work this up, we will obtain an echocardiogram to evaluate her LV size function. We will continue to follow. By: [id number] 0002 Ej Mitchell MD /nt
--- NOTE | ~2017-02-28 | EKG ---
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
--- NOTE | ~2017-02-28 | HC ---
[facility] [place] [address] CONSULTATION Name: DEBRA TURCIOS Room #: 447-P ADM IN M.R.#: [id number] Admission: 02/28/17 Attend Phys: Pancho Iyer DO Discharge: Date of : 76 Report #: [id number] THIS REPORT FOR: //name// CC: AMIRAH physician/PCP Pancho Iyer DATE OF SERVICE: 03/01/2017 CONSULTATION: Infectious diseases. HISTORY OF PRESENT ILLNESS: Ms Turcios is a 36-year-old female who was admitted to the hospital because of liver failure and abdominal pain. The patient was first admitted on 01/27/2017 for alcoholic detoxification. She was diagnosed with probable cirrhosis and liver failure. The patient was discharged on 02/02/2017 with plans to go to [facility] for alcoholic rehab. The patient returned to the hospital on 02/12/2017 with increased abdominal pain and was hospitalized for additional 12 days. She was discharged, she was checked into rehab at the [facility] on 02/28, but the admitting nurse felt the patient was too sick and referred her to the Emergency Room where she was admitted with leukocytosis, jaundice and edema. Infectious Disease consultation was requested. PAST MEDICAL HISTORY: Significant for liver failure due to alcoholism. The patient has history of pancreatitis and abdominal pain. She was diagnosed in the past with ischemic colitis. She has anxiety, depression and there is mention of schizoaffective condition. There is a past history of a seizure disorder. The patient had a seizure, which may be related to alcohol withdrawal. PAST SURGICAL HISTORY: Includes appendectomy, section, laparoscopic cholecystectomy, rotator cuff surgery and knee surgery. FAMILY HISTORY: Noncontributory. SOCIAL HISTORY: The patient is single. She is essentially homeless, but planning on going to [facility] rehab and hopes they can with housing through their program. She does continue to use cigarettes, but only quarter pack per day. She has not had any alcohol since her admission on 01/27/2017, she is hoping to qualify for the liver transplant program at . 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 REVIEW OF SYSTEMS: GENERAL: The patient is not complaining of fevers, chills, sweats. She is having weakness, malaise and weight again. ENT: No headache, sinus congestion, cognitive dysfunction. CHEST: No cough, chest pain, shortness of breath. [address] [address] CONSULTATION Name: DEBRA TURCIOS [place] Room #: 447-P [facility] IN M.R.#: [id number] Admission: 02/28/17 Attend Phys: Pancho Iyer DO Discharge: Date of : 76 Report #: [id number] GASTROINTESTINAL: Diffuse abdominal pain. GENITOURINARY: No complaints. EXTREMITIES: Pain and swelling in the lower extremities, particularly left foot. PHYSICAL EXAMINATION: GENERAL: The patient appears deeply jaundiced. NEUROLOGIC: Alert, oriented, comfortable, pleasant, not in any distress. VITAL SIGNS: Normal. The patient is afebrile, blood pressure 103/58. SKIN: Shows a dark yellow color and several tattoos. ENT: Otherwise negative. NECK: Supple. CARDIOVASCULAR: Heart sounds normal. LUNGS: Clear. ABDOMEN: Belly is somewhat distended, soft. Moderately tender. I cannot appreciate any organomegaly, but it is difficult to palpate deeply because of her discomfort. EXTREMITIES: 2+ edema. LABORATORY DATA: White count 20,000, hemoglobin 10.8, hematocrit 31.4, platelets 156,000. Electrolytes, BUN, creatinine, glucose normal. Liver function tests elevated with bilirubin 20.3. The SGOT is 221, SGPT is 195, alkaline phosphatase is 176, albumin is 1.7. The alcohol level is undetectable. Serum ammonia is 71. Lactate is normal. Protime elevated at 21.7, INR 2.1. Sonogram demonstrated no ascites. CT scan was suggestive of fatty liver and cirrhosis. The spleen was not enlarged. There was peripancreatic edema. The bowel itself looked okay. IMPRESSION: Pancreatitis, alcoholic hepatitis without ascites. I doubt this represents bacterial peritonitis, in the absence of ascites. PLAN: At this time, I suggest we treat the patient for the hepatitis, cirrhosis and pancreatitis, I do not think antibiotics will be necessary. Elevation and compression may be helpful to mobilize the fluid in the feet and diuretics to try to get the fluid off. Obviously, the patient is committed to alcoholic abstinence and eventual liver transplantation. I appreciate the opportunity to offer input in the care of the patient and I will be happy to follow her through the weekend. At this point, we will not plan on using any antibiotics. <ELECTRONICALLY SIGNED> By: Neville Ramirez MD 03/02/172011 1736 2228 Neville Ramirez MD /nt
--- NOTE | ~2017-02-28 | 2DMMODE ---
[facility] [address] [place] [address] 2 D/M-MODE ECHOCARDIOGRAM Name: DEBRA DHILLON HILAND Room #: 447-P [facility] IN M.R.#: [id number] Admission: 02/28/17 Attend Phys: Pancho Iyer, Discharge: Date of : 76 Date of Service: 03/04/17 1117 Report #: [id number] THIS REPORT FOR: //name// APPROVED REPORT Study performed: 03/04/2017 08:57:47 EXAM: Comprehensive 2D, Doppler, and color-flow Echocardiogram Patient Location: Bedside Blood Pressure: 103/49 mmHg HR: 95 bpm Other Information Study Quality: GoodFair Indications Arrhythmia 2D Dimensions RVDd: 38.76 mm LVEF(%): 67.94 (>50%) IVSd: 10.99 (7-11mm) LVOT Diam: 22.67 (18-24mm) LVDd: 46.01 mm PWd: 11.08 (7-11mm) Ascending Aorta: 25.84 mm LVDs: 28.63 (25-40mm) IVC: 18.00 mm Aortic Root: 27.60 mm Scott's LVEF: 67.94 % Volumes Left Atrial Volume (Systole) Single Plane 4CH: 35.49 mL Single Plane 2CH: 44.96 mL LA ESV Index: 22.00 mL/m2 Aortic Valve AoV Peak Kenan.: 1.69 m/s AO Peak Gr.: 11.46 mmHg LV Max P.69 mmHg LV Max: 1.19 m/s Mitral Valve MV PHT: 44.09 ms MV E Max Kenan.: 1.13 m/s E/A Ratio: 1.6 MV A Kenan.: 0.72 m/s MV Decel. Time: 152.05 ms [facility] [address] [place] [address] 2 D/M-MODE ECHOCARDIOGRAM Name: DEBRA DHILLON HILAND Room #: 447-P ADM IN M.R.#: [id number] Admission: 02/28/17 Attend Phys: Pancho Iyer, Discharge: Date of : 76 Date of Service: 03/04/17 1117 Report #: [id number] Pulmonary Valve PV Peak Kenan.: 1.27 m/s PV Peak Gr.: 6.44 mmHg Tricuspid Valve TR Peak Kenan.: 2.90 m/s RAP Estimate: 5.00 mmHg TR Peak Gr.: 33.63 mmHg Left Ventricle The left ventricle is normal size. There is normal LV segmental wall motion. There is normal left ventricular wall thickness. Left ventricular systolic function is normal. The left ventricular ejection fraction is within the normal range. LVEF is 60-65%. The left ventricular diastolic function is normal. Right Ventricle The right ventricle is normal size. The right ventricular systolic function is normal. Atria The left atrium size is normal. The right atrium size is normal. Aortic Valve The aortic valve is normal in structure. No aortic regurgitation is present. There is no aortic valvular stenosis. Mitral Valve The mitral valve is normal in structure. Trace mitral regurgitation. Tricuspid Valve The tricuspid valve is normal in structure. There is trace tricuspid regurgitation. The right atrial pressure is estimated at 5 mmHg. There is mild pulmonary hypertension. The estimated PAP was 39 mmHg. Pulmonic Valve The pulmonary valve is normal in structure. There is no pulmonic valvular regurgitation. Great Vessels The aortic root is normal in size. IVC is normal in size and collapses >50% with inspiration. Pericardium There is no pericardial effusion. [facility] [address] [place] [address] 2 D/M-MODE ECHOCARDIOGRAM Name: DEBRA DHILLON HILAND Room #: 447-P [facility] IN .R.#: [id number] Admission: 02/28/17 Attend Phys: Pancho Iyer, Discharge: Date of : 76 Date of Service: 03/04/17 1117 Report #: [id number] <Conclusion> Left ventricular systolic function is normal. The left ventricular ejection fraction is within the normal range. There is normal LV segmental wall motion. LVEF is 60-65%. Normal diastolic function The aortic valve is normal in structure. No stenosis or insufficiency The mitral valve is normal in structure. Trace mitral regurgitation. There is trace tricuspid regurgitation. The right atrial pressure is estimated at 5 mmHg. There is mild pulmonary hypertension. The estimated PAP was 40 mmHg. There is no pericardial effusion. <ELECTRONICALLY SIGNED> By: Jace Martinez MD, FACC 03/04/17 1117 111 111 Jace Martinez MD, FACC /INF
[~2017-02-28 12:14] MED LIST changes: +ALDACTONE25 MG PO; +ALPRAZOLAM 0.0.25 M1 PO; +CREON 10 CAPSUL1 CA1 PO; +LACTULOSE10 GM/153 PO; +OXYCODONE HCL 55 MG PO; +PREDNISONE 20 M20 M1 PO; +PRENATAL PO; +TRINATE TABLET1 TAB PO; +VITAMIN B-1100 M2 PO
[2017-02-28 12:17] VITALS: BP 109/61
[2017-02-28 12:48] LABS: HEMATOCRIT 33.8 % (37.0-47.0); HEMOGLOBIN 11.6 gm/dL (12.0-15.0); MCH 37.4 pg (26.0-34.0); MCHC 34.3 g/dL (28.0-37.0); MCV 108.9 fL (80.0-100.0); RBC 3.11 mil/uL (4.20-5.00); RDW 16.3 % (10.5-14.5); WBC 21.9 thou/uL (4.0-11.0)
[2017-02-28 12:49] LABS: MANUAL DIFF YES
[2017-02-28 13:17] LABS: CALCIUM 8.6 mg/dL (8.5-10.1); CREATININE 0.5 mg/dL (0.6-1.3); POTASSIUM 3.7 mmol/L (3.5-5.1)
[2017-02-28 13:19] LABS: ABSOLUTE NEUTROPHILS 20.6 thou/uL (1.4-8.2); TOTAL CELL COUNT 100
[2017-02-28 13:21] LABS: ANISOCYTOSIS 1+; LARGE PLATELETS FEW; MACROCYTES 2+; PLATELET COUNT 181 thou/uL (150-400); PLATELET ESTIMATE NORMAL; TARGET CELLS 2+
[2017-02-28 13:29] LABS: ALBUMIN 1.7 g/dL (3.4-5.0); DIRECT BILIRUBIN 17.4 mg/dL (<0.1-0.3); TOTAL BILIRUBIN 20.3 mg/dL (<0.1-1.0); TOTAL PROTEIN 5.2 g/dL (6.4-8.2)
[2017-02-28 14:14] LABS: INR 2.1; PROTIME 21.7 Seconds (9.3-11.4)
[2017-02-28 15:43] VITALS: BP 115/65
[2017-02-28 16:00] VITALS: BP 100/61
[2017-02-28 16:08] LABS: ICTOTEST (BILI CONFIRMATORY) Positive (Negative); URINE COLOR ORANGE
[2017-02-28 16:24] LABS: SSA (PROTEIN CONFIRMATORY) TRACE (APPROX. 5) mg/dL (Negative)
[2017-02-28 16:35] LABS: BACTERIA 1-9 Few /HPF (None Seen); CASTS None Seen /LPF (None Seen); CRYSTALS None Seen /LPF (None Seen); SQUAMOUS 4-10 Moderate /LPF (0-3); URINE RBC 3-10 Few /HPF (0-2); URINE WBC None Seen /HPF (0-5)
[2017-02-28 19:27] VITALS: BP 101/57
[2017-03-01 00:06] VITALS: BP 96/56
[2017-03-01 04:50] VITALS: BP 93/51
[2017-03-01 05:31] LABS: HEMATOCRIT 31.4 % (37.0-47.0); HEMOGLOBIN 10.8 gm/dL (12.0-15.0); MCH 37.5 pg (26.0-34.0); MCHC 34.5 g/dL (28.0-37.0); MCV 108.4 fL (80.0-100.0); PLATELET COUNT 156 thou/uL (150-400); RDW 16.8 % (10.5-14.5); WBC 20.3 thou/uL (4.0-11.0)
[2017-03-01 05:33] LABS: MANUAL DIFF YES
[2017-03-01 06:00] LABS: ALBUMIN 1.6 g/dL (3.4-5.0); CALCIUM 8.1 mg/dL (8.5-10.1); CREATININE 0.5 mg/dL (0.6-1.3); POTASSIUM 3.5 mmol/L (3.5-5.1); TOTAL BILIRUBIN 20.4 mg/dL (<0.1-1.0)
[2017-03-01 06:28] LABS: TOTAL PROTEIN 5.3 g/dL (6.4-8.2)
[2017-03-01 07:02] LABS: ABSOLUTE NEUTROPHILS 19.1 thou/uL (1.4-8.2); METAMYELOCYTES 1 %; TOTAL CELL COUNT 100
[2017-03-01 07:03] LABS: ANISOCYTOSIS 1+; LARGE PLATELETS OCCASIONAL; MACROCYTES 2+; TARGET CELLS 1+
[2017-03-01 08:00] VITALS: BP 97/53
[2017-03-01 12:00] VITALS: BP 97/60
[2017-03-01 16:00] VITALS: BP 103/58
[2017-03-01 20:15] VITALS: BP 90/57
[2017-03-02 03:15] VITALS: BP 91/45
[2017-03-02 06:42] LABS: HEMATOCRIT 29.4 % (37.0-47.0); HEMOGLOBIN 10.2 gm/dL (12.0-15.0); MANUAL DIFF YES; MCH 37.8 pg (26.0-34.0); MCHC 34.8 g/dL (28.0-37.0); MCV 108.6 fL (80.0-100.0); PLATELET COUNT 135 thou/uL (150-400); RBC 2.71 mil/uL (4.20-5.00); RDW 17.1 % (10.5-14.5); WBC 17.5 thou/uL (4.0-11.0)
[2017-03-02 08:00] VITALS: BP 99/52
[2017-03-02 08:35] LABS: ABSOLUTE NEUTROPHILS 14.9 thou/uL (1.4-8.2); METAMYELOCYTES 2 %; TOTAL CELL COUNT 100
[2017-03-02 08:36] LABS: ANISOCYTOSIS 1+; HYPOCHROMASIA 1+; MACROCYTES 2+; POLYCHROMASIA OCCASIONAL
[2017-03-02 12:00] VITALS: BP 88/48
[2017-03-02 13:40] VITALS: BP 107/56
[2017-03-02 16:00] VITALS: BP 101/53
[2017-03-02 19:53] VITALS: BP 111/53
[2017-03-03 04:45] VITALS: BP 105/50
[2017-03-03 05:46] LABS: HEMATOCRIT 29.1 % (37.0-47.0); HEMOGLOBIN 10.1 gm/dL (12.0-15.0); INR 2.4; MCH 37.9 pg (26.0-34.0); MCHC 34.7 g/dL (28.0-37.0); MCV 109.3 fL (80.0-100.0); PROTIME 24.8 Seconds (9.3-11.4); RBC 2.66 mil/uL (4.20-5.00); RDW 17.3 % (10.5-14.5); WBC 16.9 thou/uL (4.0-11.0)
[2017-03-03 06:06] LABS: ALBUMIN 1.4 g/dL (3.4-5.0); CALCIUM 8.1 mg/dL (8.5-10.1); CREATININE 0.4 mg/dL (0.6-1.3); POTASSIUM 3.3 mmol/L (3.5-5.1)
[2017-03-03 07:25] LABS: TOTAL BILIRUBIN 21.2 mg/dL (<0.1-1.0)
[2017-03-03 09:00] VITALS: BP 98/54
[2017-03-03 12:38] VITALS: BP 105/44
[2017-03-03 16:56] VITALS: BP 99/57
[2017-03-03 19:52] VITALS: BP 101/60
[2017-03-04 04:26] VITALS: BP 99/47
[2017-03-04 05:27] LABS: HEMOGLOBIN 10.2 gm/dL (12.0-15.0); RBC 2.67 mil/uL (4.20-5.00)
[2017-03-04 05:28] LABS: MCH 38.2 pg (26.0-34.0); MCHC 35.1 g/dL (28.0-37.0); MCV 108.8 fL (80.0-100.0); PLATELET COUNT 142 thou/uL (150-400); RDW 17.5 % (10.5-14.5); WBC 17.4 thou/uL (4.0-11.0)
[2017-03-04 05:32] LABS: INR 2.3; PROTIME 23.4 Seconds (9.3-11.4)
[2017-03-04 05:55] LABS: MANUAL DIFF YES
[2017-03-04 06:26] LABS: ALBUMIN 1.5 g/dL (3.4-5.0); CALCIUM 8.1 mg/dL (8.5-10.1); CREATININE 0.5 mg/dL (0.6-1.0); POTASSIUM 3.7 mmol/L (3.5-5.1); TOTAL BILIRUBIN 22.3 mg/dL (<0.1-1.0); TOTAL PROTEIN 4.9 g/dL (6.4-8.2)
[2017-03-04 08:41] VITALS: BP 103/49
[2017-03-04 08:41] LABS: ABSOLUTE NEUTROPHILS 15.5 thou/uL (1.4-8.2); TOTAL CELL COUNT 100
[2017-03-04 08:42] LABS: ANISOCYTOSIS 1+; MACROCYTES 3+; PLATELET ESTIMATE NORMAL; TARGET CELLS 2+
[2017-03-04 11:51] VITALS: BP 99/54
[2017-03-04 16:27] VITALS: BP 103/58
[2017-03-04 19:31] VITALS: BP 100/53
== END 2017-03-04 21:00 | disposition short-term general hospital (02) | DRG 432 ==
LOC: ER 12:14 → EROBS 13:54 → 4S 13:54
PROVIDERS: Emergency Medicine; Family Medicine; Hospitalist; Internal Medicine Gastroenterology; Internal Medicine Infectious Disease
PROC: B548ZZA Ultrasonography of Superior Vena Cava, Guidance (ICD-10-PCS; principal; 2017-02-28)
PROC: 02HV33Z Insertion of Infusion Device into Superior Vena Cava, Percutaneous Approach (ICD-10-PCS; principal; 2017-02-28)
DX: K70.31 Alcoholic cirrhosis of liver with ascites (principal); K65.2 Spontaneous bacterial peritonitis; K83.1 Obstruction of bile duct; K85.20 Alcohol induced acute pancreatitis without necrosis or infection; K76.6 Portal hypertension; E72.20 Disorder of urea cycle metabolism, unspecified; K86.0 Alcohol-induced chronic pancreatitis; G40.909 Epilepsy, unspecified, not intractable, without status epilepticus; F17.210 Nicotine dependence, cigarettes, uncomplicated; R00.0 Tachycardia, unspecified; F10.20 Alcohol dependence, uncomplicated; M79.89 Other specified soft tissue disorders; K70.10 Alcoholic hepatitis without ascites; D72.829 Elevated white blood cell count, unspecified; F41.9 Anxiety disorder, unspecified; F32.9 Major depressive disorder, single episode, unspecified; Z88.6 Allergy status to analgesic agent; Z90.49 Acquired absence of other specified parts of digestive tract; Z91.048 Other nonmedicinal substance allergy status; Z79.899 Other long term (current) drug therapy; Z59.0 Homelessness
CPT/HCPCS: 10100; 27000

== ENCOUNTER 2018-05-10 09:44 | Inpatient (IN) | payer OTHER ==
[~2018-05-10] VITALS: Ht 175.3 cm; Wt 106.8 kg
--- NOTE | ~2018-05-10 | HC ---
[facility] [place] [address] CONSULTATION Name: DEBRA DHILLON Room #: 364-P ADM IN M.R.#: [id number] Admission: 05/10/18 Attend Phys: Alvin Bauer MD Discharge: Date of : 76 Report #: [id number] THIS REPORT FOR: //name// CC: Kerrie Hoyos DO [facility] physician/PCP Alvin Taveras DO DATE OF SERVICE: 05/13/2018 REASON FOR CONSULTATION: Thrombocytopenia. HISTORY OF PRESENT ILLNESS: The patient is a 37-year-old female, who I had seen about a year ago, who has a history of alcohol-related end-stage liver disease, who is followed at [facility]. She had heavily been drinking as her alcohol level when she came in was 414, had fallen and had trauma to her left taoist. CAT scans did not reveal any broken bones, just soft tissue injury, so to speak. On admission, her INR was 1.4, this was on 05/10 and her platelets were 33. That same date, her B12 was 1876 and her folic acid was 19.2, hemoglobin 12.3, white count 4.2. Total bilirubin 2.9, AST 884, ALT 414, albumin 3.1. She had a CT head, cervical spine and abdomen. The abdomen did show some questionable nodularity of the liver and also some calcifications in the pancreatic head. On 05/11, the platelets were 21,000 and a total bilirubin stable at 2.8, AST had decreased to 519 and ALT down to 388. On 05/12, platelets were down to 15,000. Total bilirubin is up to 3.5, AST slightly higher at 579. Today on 05/13, the platelets are slightly better or stable at 16,000; hemoglobin stable at 11.9; white count 2.5; total bilirubin is 5.3. INR slightly higher at 1.8. AST slightly low at 437, ALT slightly low at 260. Iron panel is normal. The patient denies any blood in urine or stool. Does have a bruise on her arm from when she fell. Oropharynx does not have any petechiae or ecchymosis. She does report a nosebleed last week that stopped with usual amount of pressure. The patient denies any recent fevers or chills. Note that when reviewing records, the patient has been seen by Catina Pizarro on, about, 04/01/2018 and because of her recent alcohol use was not thought to be an orthotopic liver transplant candidate at that time. The patient also had an EGD on 04/17 that showed small varices, portal hypertensive gastropathy and a normal duodenum. She had an MRI of the abdomen about the same time that showed hemangiomas in the liver and changes consistent with portosystemic varices. I think her recent alpha fetoprotein was normal. PAST MEDICAL HISTORY: Notable for the history of alcohol abuse and end-stage liver disease related to that. She also has a history of thrombocytopenia with an admit about a year ago for platelets around 33,000. Note that her recent platelet counts at on 03/31 were 148,000. Note, that the distant past about a year ago, she did have a platelet antibody present, but they did not appear to [facility] [address] [place] [address] CONSULTATION Name: DEBRA DHILLON [place] Room #: 364-P ADM IN M.R.#: [id number] Admission: 05/10/18 Attend Phys: Alvin Bauer MD Discharge: Date of : 76 Report #: [id number] be clinically significant. The rest of her history is notable for the history of alcohol abuse, acute pancreatitis, history of anxiety and depression, and schizoaffective disorder. Also, history of possible seizure disorder that may have been related to alcohol withdrawal. Also appendectomy, tonsillectomy, cholecystectomy, rotator cuff surgery in the past, also tobacco abuse. SOCIAL HISTORY: Still smokes about 5-6 cigarettes a day, has started drinking alcohol when she was a teenager, recently is at a living establishment where she has a son who is 18 and a daughter who is 14. Son graduated from high school, plans to attend [employer], would like to perhaps attend [employer] school. Her daughter is 14 and plays basketball. There is also reported history of cocaine use about 16 years ago. No marijuana use, is disabled due to seizures from head trauma. CURRENT MEDICATIONS: At the hospital include eyedrops, lactulose 20 g b.i.d., vitamins 1 tab daily, thiamine 100 mg daily, Compazine 10 mg q.6 IV p.r.n., pantoprazole 40 b.i.d. IV, haloperidol 2.5 mg q.2 p.r.n., flumazenil 0.2 mg on a withdrawal schedule as needed, lorazepam as needed on withdrawal schedule, morphine sulfate p.r.n., MiraLax daily. PHYSICAL EXAMINATION: GENERAL: The patient appears her stated age, is looking somewhat disheveled and slow to answer questions, but appears to be thoughtful in her answers. VITAL SIGNS: Height is currently 5 feet 9, which is 175 cm. Weight is 200 pounds, which is 90.7 kilograms. Blood pressure is 106/62, O2 sat 94%, respirations 20, pulse 95, temperature 98.3. NEUROLOGIC: She is moving extremities, though somewhat slow due to pain from falling down and just looks like may be from lack of sleep and recovery and also alcohol encephalopathy. She is moving extremities. HEENT: Oropharynx maybe has 1 petechia, but nothing to suggest any abnormal; do not see any ecchymosis, soft palate; ears look normal. The patient does have ecchymosis on her right forearm that she says may have occurred when she fell. No blood in her nares or oropharynx. LUNGS: Appear to sound clear with symmetric unlabored respiration. HEART: Regular rate. ABDOMEN: Obese. She complains of some mild tenderness. No masses. No signs of fluid. EXTREMITIES: Without clubbing, cyanosis. She does have trace edema with maybe just some slight thickening, but not really pitting. ASSESSMENT AND PLAN: 1. Thrombocytopenia. Current platelets are 16,000 with an INR of 1.8. No signs of bleeding. Hopefully, thrombocytopenia, which is most likely due to the patient's alcohol abuse and liver disease, will plateau and likely improve. If she drops lower than 15 or bleeds, would suggest platelet transfusion. [facility] [address] [place] [address] CONSULTATION Name: DEBRA DHILLON [place] Room #: 364-P ADM IN M.R.#: [id number] Admission: 05/10/18 Attend Phys: Alvin Bauer MD Discharge: Date of : 76 Report #: [id number] 2. Coagulopathy with increase in INR from 1.4 to 1.8, suggest following serially. If this increases to 2 and higher, would consider FFP or cryo. 3. End-stage liver disease secondary to alcohol abuse, [facility] , specifically, Catina Pizarro. Encouraged smoking and alcohol cessation. Recent EGD and MRI as reported. 4. Hepatic encephalopathy. Continue lactulose. 5. Trauma due to her fall. CAT scans reveal no broken bones; ecchymosis and contusions are healing. 6. Alcohol intoxication with alcohol level of 414 on admit, social work seeing the patient, encouraged cessation. 7. Abnormal liver function tests, transaminases slightly improved, but total bili higher, Gastroenterology is following. 8. History of chronic pancreatitis and abdominal pain. We will defer to Gastroenterology. 9. History of esophageal varices. No bleeding. 10. Seizure disorder reported, none at this time. 11. Schizoaffective disorder, would defer treatment to others. 12. Post-traumatic stress disorder, defer to others. We will follow with you. <ELECTRONICALLY SIGNED> By: Eder Mayes MD 05/13/18 [id number] Eder Mayes MD /nt
[2018-05-10 09:52] VITALS: BP 118/67
[2018-05-10 10:40] LABS: URINE BILIRUBIN 1+ (Negative); URINE BLOOD 2+ (Negative); URINE CLARITY CLEAR; URINE COLOR YELLOW; URINE GLUCOSE-RANDOM* TRACE (Negative); URINE KETONES 1+ (Negative); URINE LEUKOCYTES-REFLEX NEGATIVE (Negative); URINE NITRITE-REFLEX NEGATIVE (Negative); URINE PROTEIN (DIPSTICK) 1+ (Negative); URINE SPECIFIC GRAVITY 1.015 (1.005-1.035)
[2018-05-10 10:44] LABS: ICTOTEST (BILI CONFIRMATORY) Positive (Negative)
[2018-05-10 10:51] LABS: CASTS None Seen /LPF (None Seen); SQUAMOUS 4-10 Moderate /LPF (0-3); URINE RBC 0-2 Rare /HPF (0-2); URINE WBC-REFLEX 0-5 Rare /HPF (0-5)
[2018-05-10 10:52] LABS: CRYSTALS None Seen /LPF (None Seen)
[2018-05-10 12:12] LABS: ABSOLUTE NEUTROPHILS 3.2 thou/uL (1.4-8.2); HEMOGLOBIN 12.3 gm/dL (12.0-15.0)
[2018-05-10 12:14] LABS: BASOPHILS 0.3 % (0.0-2.0); EOSINOPHILS 0.1 % (0.0-3.0); HEMATOCRIT 35.9 % (37.0-47.0); LYMPHOCYTES 15.6 % (24.0-44.0); MCHC 34.4 g/dL (28.0-37.0); MCV 98.7 fL (80.0-100.0); MONOCYTES 7.3 % (1.0-8.0); POLYS 76.7 % (36.0-66.0); RBC 3.63 mil/uL (4.20-5.00); RDW 16.8 % (10.5-14.5); WBC 4.2 thou/uL (4.0-11.0)
[2018-05-10 12:20] LABS: INR 1.4; PROTIME 14.4 Seconds (9.3-11.4)
[2018-05-10 12:27] LABS: ANION GAP 11 mmol/L (7-16); BUN 14 mg/dL (7-18); CALCIUM 7.9 mg/dL (8.5-10.1); CHLORIDE 98 mmol/L (98-107); CO2 25 mmol/L (21-32); CREATININE 0.7 mg/dL (0.6-1.0); GLUCOSE 125 mg/dL (74-106); POTASSIUM 3.2 mmol/L (3.5-5.1); SODIUM 134 mmol/L (136-145)
[2018-05-10 12:32] LABS: ALBUMIN 3.1 g/dL (3.4-5.0); LIPASE 248 U/L (73-393); SGOT 884 U/L (15-37); SGPT 414 U/L (30-65); TOTAL BILIRUBIN 2.9 mg/dL (<0.1-1.0); TOTAL PROTEIN 6.5 g/dL (6.4-8.2)
[2018-05-10 12:33] LABS: SALICYLATE < 2.8 mg/dL (2.8-20.0)
[2018-05-10 12:37] LABS: PLATELET COUNT 33 thou/uL (150-400)
[2018-05-10 14:52] LABS: MAGNESIUM 2.4 mg/dL (1.8-2.4); PHOSPHORUS 1.8 mg/dL (2.5-4.9)
[2018-05-10 14:57] LABS: AMP/METHAMP Negative (Negative); BARBITURATES Negative (Negative); BENZODIAZEPINES Negative (Negative); COCAINE Negative (Negative); METHADONE Negative (Negative); OPIATES Negative (Negative); PCP Negative (Negative)
[2018-05-10 15:10] VITALS: BP 121/68
[2018-05-10 15:19] LABS: FOLIC ACID 19.2 ng/mL (8.6-58.9)
[2018-05-10 17:34] VITALS: BP 96/52
[2018-05-10 19:05] VITALS: BP 107/66
[2018-05-10 23:50] VITALS: BP 87/59
[2018-05-11 03:35] VITALS: BP 108/68
[2018-05-11 05:58] LABS: HEMOGLOBIN 11.8 gm/dL (12.0-15.0); MCHC 34.2 g/dL (28.0-37.0); RDW 16.6 % (10.5-14.5)
[2018-05-11 06:00] LABS: HEMATOCRIT 34.4 % (37.0-47.0); MCH 34.3 pg (26.0-34.0); MCV 100.3 fL (80.0-100.0); RBC 3.43 mil/uL (4.20-5.00); WBC 2.4 thou/uL (4.0-11.0)
[2018-05-11 07:53] LABS: CALCIUM 7.4 mg/dL (8.5-10.1); CREATININE 0.6 mg/dL (0.6-1.0); POTASSIUM 3.2 mmol/L (3.5-5.1); TOTAL BILIRUBIN 2.8 mg/dL (<0.1-1.0); TOTAL PROTEIN 6.2 g/dL (6.4-8.2)
[2018-05-11 08:00] VITALS: BP 97/58
[2018-05-11 12:00] VITALS: BP 100/59
[2018-05-11 16:00] VITALS: BP 117/72
[2018-05-11 19:55] VITALS: BP 113/61
[2018-05-12 03:52] VITALS: BP 110/53
[2018-05-12 06:25] LABS: HEMATOCRIT 34.5 % (37.0-47.0); HEMOGLOBIN 11.8 gm/dL (12.0-15.0); MCH 34.4 pg (26.0-34.0); MCHC 34.3 g/dL (28.0-37.0); RBC 3.44 mil/uL (4.20-5.00); WBC 2.4 thou/uL (4.0-11.0)
[2018-05-12 06:28] LABS: MCV 100.3 fL (80.0-100.0); RDW 16.4 % (10.5-14.5)
[2018-05-12 06:36] LABS: PLATELET COUNT 15 thou/uL (150-400)
[2018-05-12 06:45] LABS: ALBUMIN 2.7 g/dL (3.4-5.0); CALCIUM 7.9 mg/dL (8.5-10.1); CREATININE 0.6 mg/dL (0.6-1.0); MAGNESIUM 1.7 mg/dL (1.8-2.4); PHOSPHORUS 1.5 mg/dL (2.5-4.9); POTASSIUM 3.6 mmol/L (3.5-5.1); TOTAL BILIRUBIN 3.5 mg/dL (<0.1-1.0); TOTAL PROTEIN 5.8 g/dL (6.4-8.2)
[2018-05-12 07:32] VITALS: BP 112/67
[2018-05-12 07:47] LABS: ABSOLUTE NEUTROPHILS 1.7 thou/uL (1.4-8.2); ANISOCYTOSIS 1+
[2018-05-12 07:48] LABS: MACROCYTES FEW
[2018-05-12 12:28] VITALS: BP 98/62
[2018-05-12 18:02] VITALS: BP 113/59
[2018-05-12 19:35] VITALS: BP 113/77
[2018-05-13 03:55] VITALS: BP 106/62
[2018-05-13 05:41] LABS: HEMATOCRIT 35.3 % (37.0-47.0); HEMOGLOBIN 11.9 gm/dL (12.0-15.0); MCV 100.5 fL (80.0-100.0); WBC 2.5 thou/uL (4.0-11.0)
[2018-05-13 05:42] LABS: MCH 33.8 pg (26.0-34.0); MCHC 33.7 g/dL (28.0-37.0); RBC 3.51 mil/uL (4.20-5.00); RDW 16.3 % (10.5-14.5)
[2018-05-13 05:51] LABS: INR 1.8; PROTIME 18.1 Seconds (9.3-11.4)
[2018-05-13 06:04] LABS: ALBUMIN 2.8 g/dL (3.4-5.0); CALCIUM 8.1 mg/dL (8.5-10.1); CREATININE 0.7 mg/dL (0.6-1.0); POTASSIUM 3.5 mmol/L (3.5-5.1); TOTAL BILIRUBIN 5.3 mg/dL (<0.1-1.0)
[2018-05-13 06:05] LABS: % SATURATION 26 % (20-39); IRON 64 ug/dL (50-170); TIBC 247 ug/dL (250-450)
[2018-05-13 07:20] LABS: TOTAL PROTEIN 6.2 g/dL (6.4-8.2)
[2018-05-13 08:00] VITALS: BP 123/65
[2018-05-13 12:00] VITALS: BP 125/68
[2018-05-13 16:00] VITALS: BP 119/76
[2018-05-13 20:25] VITALS: BP 144/76
[2018-05-13 20:39] VITALS: BP 137/100
[2018-05-14] VITALS (56 sets, daily range): BP systolic 73–143; BP diastolic 56–92
[2018-05-14 06:20] LABS: WBC 2.5 thou/uL (4.0-11.0)
[2018-05-14 06:23] LABS: HEMATOCRIT 37.2 % (37.0-47.0); HEMOGLOBIN 12.5 gm/dL (12.0-15.0); MCH 33.9 pg (26.0-34.0); MCHC 33.6 g/dL (28.0-37.0); MCV 100.7 fL (80.0-100.0); RBC 3.69 mil/uL (4.20-5.00); RDW 16.8 % (10.5-14.5)
[2018-05-14 06:29] LABS: INR 2.1; PROTIME 21.6 Seconds (9.3-11.4)
[2018-05-14 06:35] LABS: ALBUMIN 2.8 g/dL (3.4-5.0); DIRECT BILIRUBIN 5.4 mg/dL (<0.1-0.3); TOTAL BILIRUBIN 7.1 mg/dL (<0.1-1.0)
[2018-05-14 06:41] LABS: TOTAL PROTEIN 6.2 g/dL (6.4-8.2)
[2018-05-14 06:49] LABS: CALCIUM 9.4 mg/dL (8.5-10.1); CREATININE 0.6 mg/dL (0.6-1.0); POTASSIUM 3.9 mmol/L (3.5-5.1)
[2018-05-14 08:19] LABS: ABSOLUTE NEUTROPHILS 1.9 thou/uL (1.4-8.2)
[2018-05-14 08:20] LABS: ANISOCYTOSIS 1+; PLATELET ESTIMATE DECREASED
[2018-05-14 08:23] LABS: PLATELET COUNT 17 thou/uL (150-400)
[2018-05-15] VITALS (24 sets, daily range): BP systolic 73–142; BP diastolic 42–86
[2018-05-15 04:23] LABS: HEMOGLOBIN 10.9 gm/dL (12.0-15.0); MCH 34.3 pg (26.0-34.0); MCHC 34.2 g/dL (28.0-37.0); MCV 100.4 fL (80.0-100.0); RBC 3.17 mil/uL (4.20-5.00)
[2018-05-15 04:25] LABS: HEMATOCRIT 31.8 % (37.0-47.0); RDW 16.8 % (10.5-14.5)
[2018-05-15 04:38] LABS: ALBUMIN 2.8 g/dL (3.4-5.0); CALCIUM 8.9 mg/dL (8.5-10.1); CREATININE 0.6 mg/dL (0.6-1.0); POTASSIUM 3.8 mmol/L (3.5-5.1); TOTAL BILIRUBIN 5.8 mg/dL (<0.1-1.0); TOTAL PROTEIN 6.2 g/dL (6.4-8.2)
[2018-05-15 04:53] LABS: INR 1.6; PROTIME 15.8 Seconds (9.3-11.4)
[2018-05-16] VITALS (21 sets, daily range): BP systolic 87–122; BP diastolic 55–80
[2018-05-16 05:37] LABS: HEMATOCRIT 32.6 % (37.0-47.0); HEMOGLOBIN 11.2 gm/dL (12.0-15.0); MCH 34.7 pg (26.0-34.0); MCHC 34.3 g/dL (28.0-37.0); MCV 101.2 fL (80.0-100.0); PLATELET COUNT 49 thou/uL (150-400); RBC 3.22 mil/uL (4.20-5.00); WBC 2.8 thou/uL (4.0-11.0)
[2018-05-16 05:41] LABS: CALCIUM 8.5 mg/dL (8.5-10.1); CREATININE 0.7 mg/dL (0.6-1.0); POTASSIUM 3.7 mmol/L (3.5-5.1)
[2018-05-16 05:42] LABS: INR 1.6; PROTIME 15.9 Seconds (9.3-11.4)
[2018-05-16 07:24] LABS: ABSOLUTE NEUTROPHILS 1.7 thou/uL (1.4-8.2)
[2018-05-16 07:30] LABS: ANISOCYTOSIS 2+; HYPOCHROMASIA 1+; MACROCYTES 1+; MICROCYTES 1+; PLATELET ESTIMATE DECREASED; POLYCHROMASIA 1+
[2018-05-17 03:18] VITALS: BP 101/53
[2018-05-17 07:48] VITALS: BP 112/74
[2018-05-17 08:12] LABS: HEMATOCRIT 35.5 % (37.0-47.0); HEMOGLOBIN 11.8 gm/dL (12.0-15.0); MCH 33.8 pg (26.0-34.0); MCHC 33.3 g/dL (28.0-37.0); MCV 101.4 fL (80.0-100.0); RDW 17.7 % (10.5-14.5); WBC 2.9 thou/uL (4.0-11.0)
[2018-05-17 08:24] LABS: PLATELET COUNT 52 thou/uL (150-400)
[2018-05-17 08:31] LABS: ALBUMIN 2.8 g/dL (3.4-5.0); CALCIUM 8.8 mg/dL (8.5-10.1); CREATININE 0.6 mg/dL (0.6-1.0); POTASSIUM 3.6 mmol/L (3.5-5.1); TOTAL BILIRUBIN 3.4 mg/dL (<0.1-1.0); TOTAL PROTEIN 6.1 g/dL (6.4-8.2)
[2018-05-17 09:41] LABS: ABSOLUTE NEUTROPHILS 1.3 thou/uL (1.4-8.2); ANISOCYTOSIS 1+; METAMYELOCYTES 1 %
[2018-05-17 16:20] VITALS: BP 114/64
[2018-05-17 17:53] LABS: URINE BILIRUBIN NEGATIVE (Negative); URINE BLOOD 2+ (Negative); URINE CLARITY CLEAR; URINE COLOR YELLOW; URINE GLUCOSE-RANDOM* NEGATIVE (Negative); URINE KETONES NEGATIVE (Negative); URINE LEUKOCYTES-REFLEX NEGATIVE (Negative); URINE NITRITE-REFLEX NEGATIVE (Negative); URINE PROTEIN (DIPSTICK) NEGATIVE (Negative); URINE SPECIFIC GRAVITY 1.015 (1.005-1.035)
[2018-05-17 18:02] LABS: SQUAMOUS 0-3 Few /LPF (0-3)
[2018-05-17 18:03] LABS: BACTERIA-REFLEX None Seen /HPF (None Seen); CASTS None Seen /LPF (None Seen); CRYSTALS None Seen /LPF (None Seen); URINE RBC 3-10 Few /HPF (0-2); URINE WBC-REFLEX None Seen /HPF (0-5)
[2018-05-18 05:07] LABS: HEMOGLOBIN 11.9 gm/dL (12.0-15.0); MCH 34.3 pg (26.0-34.0); MCHC 34.1 g/dL (28.0-37.0); MCV 100.7 fL (80.0-100.0); PLATELET COUNT 56 thou/uL (150-400); RBC 3.48 mil/uL (4.20-5.00); RDW 17.5 % (10.5-14.5); WBC 3.1 thou/uL (4.0-11.0)
[2018-05-18 05:15] LABS: ALBUMIN 2.8 g/dL (3.4-5.0); CALCIUM 8.3 mg/dL (8.5-10.1); CREATININE 0.6 mg/dL (0.6-1.0); POTASSIUM 3.6 mmol/L (3.5-5.1); TOTAL BILIRUBIN 2.8 mg/dL (<0.1-1.0); TOTAL PROTEIN 6.2 g/dL (6.4-8.2)
[2018-05-18 08:00] VITALS: BP 118/74
[2018-05-18 08:46] LABS: ABSOLUTE NEUTROPHILS 1.5 thou/uL (1.4-8.2)
[2018-05-18 08:47] LABS: PLATELET ESTIMATE DECREASED
[2018-05-18 16:00] VITALS: BP 116/72
[2018-05-18 20:13] VITALS: BP 125/86
[2018-05-18 23:56] VITALS: BP 134/87
[2018-05-19 02:57] VITALS: BP 110/48
[2018-05-19 05:18] VITALS: BP 120/63
[2018-05-19 08:00] VITALS: BP 102/58
[2018-05-19 16:00] VITALS: BP 92/55
[2018-05-19 19:35] VITALS: BP 119/69
[2018-05-20 04:45] VITALS: BP 115/69
[2018-05-20 08:19] VITALS: BP 118/73
[2018-05-20 16:00] VITALS: BP 117/62
[2018-05-20 19:51] VITALS: BP 108/65
[2018-05-21 03:39] VITALS: BP 101/61
[2018-05-21 05:33] LABS: HEMOGLOBIN 11.4 gm/dL (12.0-15.0); MCH 34.4 pg (26.0-34.0); MCHC 33.7 g/dL (28.0-37.0); MCV 102.2 fL (80.0-100.0); RBC 3.32 mil/uL (4.20-5.00); RDW 18.4 % (10.5-14.5); WBC 3.7 thou/uL (4.0-11.0)
[2018-05-21 05:46] LABS: INR 1.3; PROTIME 12.9 Seconds (9.3-11.4)
[2018-05-21 05:48] LABS: ALBUMIN 2.7 g/dL (3.4-5.0); CALCIUM 8.8 mg/dL (8.5-10.1); CREATININE 0.6 mg/dL (0.6-1.0); POTASSIUM 3.6 mmol/L (3.5-5.1); TOTAL BILIRUBIN 1.9 mg/dL (<0.1-1.0); TOTAL PROTEIN 5.9 g/dL (6.4-8.2)
[2018-05-21 08:04] VITALS: BP 106/63
[2018-05-21] MEDS ORDERED: CLONAZEPAM 1 MG1 M1 PO (08:43)
[2018-05-21] MEDS ORDERED: OXYCONTIN10 M1 PO (08:44)
[2018-05-21 09:57] VITALS: BP 106/63
== END 2018-05-21 10:31 | disposition home or self-care (01) | DRG 896 ==
LOC: ER 09:44 → 3W 14:21 → EROBS 14:21 → 3W 15:35 → ICU 05-14 11:00 → 2N 05-16 19:28 → 4N 05-21 01:25 → ENTRNSPT 05-21 10:09 → EDTRNSPTSTS 05-21 10:12 → 4N 05-21 10:31
PROVIDERS: Hospitalist; Internal Medicine Gastroenterology; Internal Medicine Hematology & Oncology; Nurse Practitioner; Nurse Practitioner Acute Care; Physician Assistant
PROC: 05HY33Z Insertion of Infusion Device into Upper Vein, Percutaneous Approach (ICD-10-PCS; principal; 2018-05-10)
PROC: 30233R1 Transfusion of Nonautologous Platelets into Peripheral Vein, Percutaneous Approach (ICD-10-PCS; 2018-05-14)
PROC: 30233L1 Transfusion of Nonautologous Fresh Plasma into Peripheral Vein, Percutaneous Approach (ICD-10-PCS; 2018-05-14)
PROC: 30233K1 Transfusion of Nonautologous Frozen Plasma into Peripheral Vein, Percutaneous Approach (ICD-10-PCS; 2018-05-14)
DX: F10.239 Alcohol dependence with withdrawal, unspecified (principal); G92 Toxic encephalopathy; D68.9 Coagulation defect, unspecified; A09 Infectious gastroenteritis and colitis, unspecified; K50.90 Crohn's disease, unspecified, without complications; K86.1 Other chronic pancreatitis; D61.818 Other pancytopenia; K70.10 Alcoholic hepatitis without ascites; K70.30 Alcoholic cirrhosis of liver without ascites; S69.90XA Unspecified injury of unspecified wrist, hand and finger(s), initial encounter; E87.6 Hypokalemia; F32.9 Major depressive disorder, single episode, unspecified; R74.0 Nonspecific elevation of levels of transaminase and lactic acid dehydrogenase [LDH]; G40.909 Epilepsy, unspecified, not intractable, without status epilepticus; F41.9 Anxiety disorder, unspecified; F25.9 Schizoaffective disorder, unspecified; F43.10 Post-traumatic stress disorder, unspecified; F10.229 Alcohol dependence with intoxication, unspecified; F17.210 Nicotine dependence, cigarettes, uncomplicated; D72.819 Decreased white blood cell count, unspecified; Z90.49 Acquired absence of other specified parts of digestive tract; Z88.8 Allergy status to other drugs, medicaments and biological substances; Z79.899 Other long term (current) drug therapy; W18.39XA Other fall on same level, initial encounter; Y93.89 Activity, other specified; Y92.89 Other specified places as the place of occurrence of the external cause; Y99.8 Other external cause status
CPT/HCPCS: 10078; 10081; 10879; 27001

== ENCOUNTER 2018-05-25 16:18 | Inpatient (IN) | payer OTHER ==
[~2018-05-25] VITALS: Ht 175.3 cm; Wt 98.4 kg
[~2018-05-25 16:18] MED LIST changes: +OXYCONTIN10 M1 PO
[2018-05-25 16:25] VITALS: BP 99/42
[2018-05-25 17:24] LABS: HEMATOCRIT 39.6 % (37.0-47.0); HEMOGLOBIN 13.4 gm/dL (12.0-15.0); MCH 34.5 pg (26.0-34.0); MCHC 33.8 g/dL (28.0-37.0); PLATELET COUNT 145 thou/uL (150-400); RBC 3.88 mil/uL (4.20-5.00); RDW 18.8 % (10.5-14.5); WBC 3.9 thou/uL (4.0-11.0)
[2018-05-25 17:26] LABS: CALCIUM 8.9 mg/dL (8.5-10.1); CREATININE 0.7 mg/dL (0.6-1.0); POTASSIUM 3.4 mmol/L (3.5-5.1)
[2018-05-25 17:32] LABS: ALBUMIN 3.2 g/dL (3.4-5.0); DIRECT BILIRUBIN 1.6 mg/dL (<0.1-0.3); TOTAL BILIRUBIN 2.4 mg/dL (<0.1-1.0); TOTAL PROTEIN 7.1 g/dL (6.4-8.2)
[2018-05-25 17:36] LABS: INR 1.2; PROTIME 12.1 Seconds (9.3-11.4)
[2018-05-25 18:09] LABS: ABSOLUTE NEUTROPHILS 1.9 thou/uL (1.4-8.2); ANISOCYTOSIS 1+; POLYCHROMASIA OCCASIONAL
[2018-05-25 19:39] VITALS: BP 102/60
[2018-05-25 21:20] VITALS: BP 107/71
[2018-05-26] VITALS: BP 109/72
[2018-05-26 04:04] VITALS: BP 96/64
[2018-05-26 05:37] LABS: INR 1.2; PROTIME 12.3 Seconds (9.3-11.4)
[2018-05-26 05:49] LABS: ALBUMIN 2.8 g/dL (3.4-5.0); CALCIUM 8.5 mg/dL (8.5-10.1); CREATININE 0.7 mg/dL (0.6-1.0); POTASSIUM 3.3 mmol/L (3.5-5.1); TOTAL BILIRUBIN 2.3 mg/dL (<0.1-1.0); TOTAL PROTEIN 6.4 g/dL (6.4-8.2)
[2018-05-26 07:19] VITALS: BP 88/50
[2018-05-26 16:45] VITALS: BP 88/45
[2018-05-26 19:29] VITALS: BP 90/44
[2018-05-27 03:23] VITALS: BP 98/51
[2018-05-27 06:08] LABS: ALBUMIN 2.7 g/dL (3.4-5.0); CALCIUM 8.6 mg/dL (8.5-10.1); CREATININE 0.7 mg/dL (0.6-1.0); MAGNESIUM 1.8 mg/dL (1.8-2.4); POTASSIUM 3.6 mmol/L (3.5-5.1); TOTAL BILIRUBIN 1.8 mg/dL (<0.1-1.0); TOTAL PROTEIN 6.3 g/dL (6.4-8.2)
[2018-05-27 07:17] LABS: URINE BLOOD NEGATIVE (Negative); URINE CLARITY CLEAR; URINE COLOR YELLOW; URINE GLUCOSE-RANDOM* NEGATIVE (Negative); URINE KETONES TRACE (Negative); URINE LEUKOCYTES-REFLEX NEGATIVE (Negative); URINE NITRITE-REFLEX NEGATIVE (Negative); URINE PROTEIN (DIPSTICK) TRACE (Negative); URINE UROBILINOGEN >= 8.0 E.U./dl (0.2-1.0)
[2018-05-27 07:22] LABS: ICTOTEST (BILI CONFIRMATORY) Negative (Negative); URINE BILIRUBIN NEGATIVE (Negative)
[2018-05-27 08:00] VITALS: BP 102/55
[2018-05-27 16:00] VITALS: BP 92/55
[2018-05-27 19:27] VITALS: BP 110/56
[2018-05-28 03:47] VITALS: BP 106/44
[2018-05-28 08:00] VITALS: BP 105/48
[2018-05-28 11:14] LABS: INR 1.3; PROTIME 13.1 Seconds (9.3-11.4)
[2018-05-28 15:33] VITALS: BP 91/47
[2018-05-28 19:18] VITALS: BP 103/57
[2018-05-29 05:23] VITALS: BP 111/51
[2018-05-29 06:17] LABS: ALBUMIN 2.6 g/dL (3.4-5.0); CALCIUM 8.6 mg/dL (8.5-10.1); CREATININE 0.5 mg/dL (0.6-1.0); POTASSIUM 3.6 mmol/L (3.5-5.1); TOTAL BILIRUBIN 1.4 mg/dL (<0.1-1.0); TOTAL PROTEIN 6.1 g/dL (6.4-8.2)
[2018-05-29 08:04] VITALS: BP 109/65
[2018-05-29] MEDS ORDERED: XIFAXAN550 MG PO (10:09)
[2018-05-29] MEDS ORDERED: CLEOCIN HCL150 MG PO (10:10)
[2018-05-29] MEDS ORDERED: SPIRONOLACTONE25 M1 PO (10:10)
[2018-05-29] MEDS ORDERED: LASIX 40 MG TAB40 M2 PO (10:11)
[2018-05-29 11:06] VITALS: BP 109/65
== END 2018-05-29 11:37 | disposition home or self-care (01) | DRG 432 ==
LOC: ER 16:18 → EROBS 18:14 → 4W 18:14 → ENTRNSPT 05-29 11:22 → EDTRNSPTSTS 05-29 11:29 → 4W 05-29 11:37
PROVIDERS: Emergency Medicine; Hospitalist
PROC: B54NZZA Ultrasonography of Left Upper Extremity Veins, Guidance (ICD-10-PCS; principal; 2018-05-26)
PROC: 05HY33Z Insertion of Infusion Device into Upper Vein, Percutaneous Approach (ICD-10-PCS; principal; 2018-05-26)
DX: K70.40 Alcoholic hepatic failure without coma (principal); E43 Unspecified severe protein-calorie malnutrition; L03.116 Cellulitis of left lower limb; F10.239 Alcohol dependence with withdrawal, unspecified; I85.10 Secondary esophageal varices without bleeding; L03.115 Cellulitis of right lower limb; F32.9 Major depressive disorder, single episode, unspecified; F41.9 Anxiety disorder, unspecified; F25.9 Schizoaffective disorder, unspecified; G40.909 Epilepsy, unspecified, not intractable, without status epilepticus; R41.0 Disorientation, unspecified; F11.10 Opioid abuse, uncomplicated; F17.210 Nicotine dependence, cigarettes, uncomplicated; Z90.49 Acquired absence of other specified parts of digestive tract; Z68.32 Body mass index [BMI] 32.0-32.9, adult; Z98.891 History of uterine scar from previous surgery; Z79.899 Other long term (current) drug therapy; Z88.8 Allergy status to other drugs, medicaments and biological substances; Z91.048 Other nonmedicinal substance allergy status
CPT/HCPCS: 10045; 27000